=== PATIENT | male | born 1955 | race Caucasian/White ===

== ENCOUNTER 2018-03-06 10:21 | Inpatient (IN) | payer OTHER ==
[2018-03-06 10:45] VITALS: BMI 60.6
--- NOTE | 2018-03-06 12:44 | HP ---
COWS - Scale Resting Pulse: 1= [place] 81-100 Sweatin= Chills/Flushing Restless Observation: 1= Difficult to Sit Still Pupil Size: 0= Normal to Room Light Bone or Joint Aches: 2= Severe Diffuse Aches Runny Nose/ Eye Tearin= Nasal Congestion GI Upset > 30mins: 1= Stomach Cramp Tremor Observation: 2= Slight Tremor Visible Yawning Observation: 1= 1-2x During Session Anxiety or Irritability: 1=Feels Anxious/Irritable Goose Flesh Skin: 0=Smooth Skin COWS Score: 11 Admission ROS S - HPI Chief Complaint: I have to stop using, I'm tired of it, I want to stay away from it. Allergies/Adverse Reactions: Allergies Allergy/AdvReac Type Severity Reaction Status Date / Time No Known Drug Allergies Allergy Verified 09/17/17 13:51 History of Present Illness: 62 yo gentleman here for detox from opiates and alcohol, denies seizure, denies any overdose. [facility] - got out in November 2017. He uses street methadone and sometimes buys street suboxone. Poor adherence to medications. History of being on methadone program at [facility] but this was in 2011 - interested in going back on a program after detox. Patient in wheelchair - difficulty walking due to morbid obesity. Exam Limitations: Clinical Condition - Ebola screening Have you traveled outside of the country in the last 21 days: No (N) Have you had contact with anyone from an Ebola affected area: No Have you been sick,other than usual withdrawal symptoms: No Do you have a fever: No - Review of Systems Constitutional: Loss of Appetite, Changes in sleep EENT: reports: Blurred Vision Respiratory: reports: SOB with Exertion Cardiac: reports: No Symptoms Reported GI: reports: Poor Appetite : reports: Frequency, Incontinence Musculoskeletal: reports: Back Pain, Joint Pain, Muscle Pain Integumentary: reports: Rash (buttocks and posterior thighs - excoriated, erythematous) Neuro: reports: Headache Endocrine: reports: No Symptoms Reported Hematology: reports: No Symptoms Reported Psychiatric: reports: Mood/Affect Appropiate, Anxious Other Systems: Reviewed and Negative Patient History - Patient Medical History Hx Anemia: No Hx Asthma: Yes (on inhaler) Hx Chronic Obstructive Pulmonary Disease (COPD): No Hx Cancer: No Hx Cardiac Disorders: No Hx Congestive Heart Failure: No Hx Hypertension: Yes (poor adherence) Hx Hypercholesterolemia: Yes (on atorvastatin) Hx Pacemaker: No Hx Seizures: No Hx Dementia: No Hx Diabetes: Yes Hx Gastrointestinal Disorders: No Hx Liver Disease: No Hx Genitourinary Disorders: No Hx Sexually Transmitted Disorders: No Hx Renal Disease (ESRD): No Hx Thyroid Disease: No Hx Human Immunodeficiency Virus (HIV): No Hx Hepatitis C: No Hx Depression: Yes (not on meds) Hx Suicide Attempt: No (denies current suicidal ideation) Hx Bipolar Disorder: No Hx Schizophrenia: No Other Medical History: thromboycytopenia; sleep apnea - Patient Surgical History Past Surgical History: Yes Hx Neurologic Surgery: No Hx Cataract Extraction: No Hx Cardiac Surgery: No Hx Lung Surgery: No Hx Breast Surgery: No Hx Breast Biopsy: No Hx Abdominal Surgery: No Hx Appendectomy: No Hx Cholecystectomy: No Hx Section: Yes (Right Knee Surgery in the 80's) Hx Orthopedic Surgery: No Anesthesia Reaction: No - PPD History Previous Implant?: Yes Implanted On Prior [facility] Admission?: Yes Date: 09/14/17 Results: 0 mm PPD to be Administered?: No - Reproductive History Patient is a Female of Child Bearing Age (11 -55 yrs old): No (male) - Smoking Cessation Smoking history: Current every day smoker Have you smoked in the past 12 months: Yes Aproximately how many cigarettes per day: 2 If you are a former smoker, when did you quit?: smokes marijuana, no cigarrette Hx Chewing Tobacco Use: No Initiated information on smoking cessation: Yes 'Breaking Loose' booklet given: 03/06/18 (give on floor) - Substance & Tx. History Hx Alcohol Use: Yes Hx Substance Use: Yes Substance Use Type: Alcohol, Cocaine, Heroin, Marijuana, Opiates Hx Substance Use Treatment: Yes (detox, methadone, ) - Substances Abused Non-Rx Methadone Route: Oral Frequency: 1-2 times per week Amount used: 10mg Age of first use: 62 Date of Last Use: 02/27/18 Heroin Route: Inhalation Frequency: Daily Amount used: 8 Age of first use: 15 Date of Last Use: 03/06/18 cocaine Route: Smoking Frequency: 1-2 times per week Amount used: $100 Age of first use: 16 Date of Last Use: 03/05/18 pot Route: Smoking Frequency: Daily Amount used: 4 blunts Age of first use: 15 Date of Last Use: 03/06/18 alcohol Route: Oral Frequency: 3-6 times per week Amount used: 2 shots Age of first use: 16 Date of Last Use: 03/05/18 suboxone Route: Oral Frequency: 1-2 times per week Amount used: 8mg Age of first use: 62 [address]) Date of Last Use: 03/05/18 Family Disease History - Family Disease History Family Disease History: Diabetes: Brother (two - living - renal), Heart Disease : Father (, of Heart attack), Brother, Other: Mother ( of aneurysm), Brother, Sister (five - living , one uses drugs), Son (three - healthy), Daughter (one - healthy) Admission Physical Exam [facility] - Vital Signs Vital Signs: Vital Signs - 24 hr 03/06/18 10:42 Temperature 98.0 F Pulse Rate 87 Respiratory 18 Rate Blood Pressure 166/96 - Physical General Appearance: Yes: Nourished, Appropriately Dressed, Moderate Distress, Obese (morbid), Anxious HEENTM: Yes: EOMI, Hearing grossly Normal, Normocephalic, Normal Voice, Pharynx Normal Respiratory: Yes: Normal Breath Sounds, Other (dyspnea on exertion) Neck: Yes: No masses,lesions,Nodules Breast: Yes: Breast Exam Deferred Cardiology: Yes: Regular Rhythm, Regular Rate Abdominal: Yes: Flat, Soft, Protuberent Genitourinary: Yes: Frequency Back: Yes: Decreased Range of Motion Musculoskeletal: Yes: Back pain, Other (difficulty to walk - uses wheelchair) Extremities: Yes: Pedal Edema (mild edema both legs- some scratch moffett) Neurological: Yes: Alert, Normal Mood/Affect, Normal Response Integumentary: Yes: Normal Color, Dry, Warm, Other (erythematous, excoriated skin buttocks and posterior thighs) Lymphatic: Yes: Within Normal Limits - Diagnostic (1) Opioid dependence with uncomplicated intoxication Current Visit: Yes Status: Acute (2) Alcohol dependence with uncomplicated intoxication Current Visit: Yes Status: Chronic (3) Sleep apnea with use of continuous positive airway pressure (CPAP) Current Visit: Yes Status: Chronic (4) Cannabis dependence Current Visit: Yes Status: Acute (5) Back pain with right-sided sciatica Current Visit: Yes Status: Acute (6) Cocaine dependence Current Visit: No Status: Acute Qualifiers: Substance use status: uncomplicated Qualified Code(s): F14.20 - Cocaine dependence, uncomplicated (7) Asthma Current Visit: Yes Status: Chronic Qualifiers: Asthma severity: unspecified severity Asthma persistence: unspecified Asthma complication type: uncomplicated Qualified Code(s): J45.909 - Unspecified asthma, uncomplicated (8) BPH (benign prostatic hyperplasia) Current Visit: No Status: Chronic Qualifiers: Lower urinary tract symptom presence: unspecified whether lower urinary tract symptoms present Qualified Code(s): N40.0 - Benign prostatic hyperplasia without lower urinary tract symptoms (9) Diabetes mellitus type 2 in obese Current Visit: No Status: Chronic (10) HTN (hypertension) Current Visit: No Status: Chronic Qualifiers: Hypertension type: essential hypertension Qualified Code(s): I10 - Essential (primary) hypertension (11) Hypercholesteremia Current Visit: No Status: Chronic (12) Morbid obesity Current Visit: No Status: Chronic (13) Nicotine dependence Current Visit: No Status: Chronic Qualifiers: Nicotine product type: cigarettes Substance use status: uncomplicated Qualified Code(s): F17.210 - Nicotine dependence, cigarettes, uncomplicated (14) Mobility impaired Current Visit: Yes Status: Acute Cleared for Admission [facility] - Detox or Rehab [facility] Level of Care: Medically Managed Detox Regimen/Protocol: Methadone/Librium S Breath Alcohol Content Breath Alcohol Content: 0 Urine Drug Screen - Results Drug Screen Negative: No Urine Drug Screen Results: THC-Marijuana, MAYRA-Cocaine, OPI-Opiates, MTD- Methadone, OXY-Oxycodone
[2018-03-06] MEDS ORDERED: hydrOXYzine PAMOATE 25 MG CAPSULE (FP) PO PRN (13:29)
[2018-03-06] MEDS ORDERED: IBUPROFEN 400 MG TABLET (FP) PO PRN (13:29)
[2018-03-06] MEDS ORDERED: chlordiazePOXIDE HCL 25 MG CAPSULE PO ONE (13:29)
[2018-03-06] MEDS ORDERED: MENTHOL/PHENOL 1 EACH UD MM PRN (13:29)
[2018-03-06] MEDS ORDERED: ACETAMINOPHEN 325 MG TABLET (FP) PO PRN (13:29)
[2018-03-06] MEDS ORDERED: MAGNESIUM CITRATE 300 ML BOTTLE PO PRN (13:29)
[2018-03-06] MEDS ORDERED: chlordiazePOXIDE HCL 25 MG CAPSULE PO PRN (13:29)
[2018-03-06] MEDS ORDERED: MAG HYDROX/AL HYDROX/SIMETH 30 ML UNIT-DOSE CUP PO PRN (13:29)
[2018-03-06] MEDS ORDERED: LOPERAMIDE HCL 2 MG CAPSULE PO PRN (13:29)
[2018-03-06] MEDS ORDERED: P-EPHED 60MG/TRIPROLIDI 2.5MG TABLET PO PRN (13:29)
[2018-03-06] MEDS ORDERED: METHADONE HCL 10 MG TABLET (FOR DETOX USE ONLY) PO ONE ×2 (13:29→23:00)
[2018-03-06] MEDS ORDERED: guaiFENesin/D-METHORPHAN HB 10 ML UNIT-DOSE CUPS PO PRN (13:29)
[2018-03-06] MEDS ORDERED: MAGNESIUM HYDROX 2400MG/30ML ORAL SUSPENSION 30 ML CUP PO PRN (13:29)
[2018-03-06] MEDS ORDERED: ALBUTEROL SO4 8 GM HFA INHALER IH PRN (13:36)
[2018-03-06] MEDS ORDERED: METHADONE HCL 10 MG TABLET (FOR DETOX USE ONLY) ONE (17:33)
[2018-03-06] MEDS: LISINOPRIL 5 MG TABLET (FP) PO SCH (18:07)
[2018-03-06] MEDS: chlordiazePOXIDE HCL 25 MG CAPSULE PO SCH ×2 (18:07→23:08)
[2018-03-06] MEDS: METHYL SALICYLATE/MENTHOL OINT 30 GM TUBE TP SCH ×2 (18:07→23:04)
[2018-03-06] MEDS: ZINC OXIDE 20% TOPICAL OINTMENT 30 GM TUBE TP SCH ×2 (18:08→23:05)
[2018-03-06 20:01] LABS: URINE APPEARANCE TURBID; URINE BILIRUBIN NEGATIVE (<2.0 mg/dL); URINE COLOR YELLOW; URINE GLUCOSE (UA) NEGATIVE (NEGATIVE); URINE KETONE NEGATIVE (NEGATIVE); URINE LEUK ESTERASE NEGATIVE (NEGATIVE); URINE NITRITE NEGATIVE (NEGATIVE); URINE PROTEIN NEGATIVE (NEGATIVE); URINE UROBILINOGEN NEGATIVE mg/dL (0.2-1.0)
[2018-03-06] MEDS ORDERED: MELATONIN 5 MG TABLETS PO PRN (22:00)
[2018-03-06] MEDS: ATORVASTATIN CA 10 MG TABLET (FP) PO SCH (23:08)
[2018-03-06] MEDS: THIAMINE HCL 100 MG TABLET (FP) PO SCH (23:08)
[2018-03-07] MEDS: chlordiazePOXIDE HCL 25 MG CAPSULE PO SCH ×4 (06:17→22:55)
[2018-03-07] MEDS: metFORMIN HCL 500 MG TABLET (FP) PO SCH (06:17)
[2018-03-07] MEDS ORDERED: METHADONE HCL 10 MG TABLET (FOR DETOX USE ONLY) PO SCH (10:00)
[2018-03-07] MEDS: LISINOPRIL 5 MG TABLET (FP) PO SCH (10:48)
[2018-03-07] MEDS: PRENATAL VITAMINS W/ FOLIC ACID TABLET (FP) PO SCH (10:48)
[2018-03-07] MEDS: ZINC OXIDE 20% TOPICAL OINTMENT 30 GM TUBE TP SCH ×2 (10:48→22:55)
[2018-03-07] MEDS: TAMSULOSIN HCL 0.4 MG CAP.ER.24H (FP) PO SCH (10:48)
[2018-03-07] MEDS: METHYL SALICYLATE/MENTHOL OINT 30 GM TUBE TP SCH ×2 (10:48→22:55)
[2018-03-07 10:56] LABS: HEMATOCRIT 39.1 % (35.4-49); HEMOGLOBIN 12.4 GM/dL (11.7-16.9); MCH 25.9 pg (25.7-33.7); MCHC 31.8 g/dl (32.0-35.9); MEAN CELL VOLUME 81.6 fl (80-96); MEAN PLT VOLUME 8.9 fl (7.5-11.1); RBC 4.79 M/mm3 (4.00-5.60); RDW 15.2 % (11.9-15.9); WHITE BLOOD COUNT 6.4 K/mm3 (4.0-10.0)
[2018-03-07 10:58] LABS: ANION GAP 2 MMOL/L (8-16); BILIRUBIN,TOTAL 0.4 mg/dL (0.2-1.0); BLOOD UREA NITROGEN 13 mg/dL (7-18); CALCIUM 8.1 mg/dL (8.5-10.1); CHLORIDE 105 mmol/L (98-107); CO2 34 mmol/L (21-32); CREATININE 0.8 mg/dL (0.7-1.3); GLUCOSE,RANDOM 89 mg/dL (74-106); SGOT/AST 20 U/L (15-37); SGPT/ALT 19 U/L (12-78); SODIUM 141 mmol/L (136-145)
[2018-03-07 10:59] LABS: ALK PHOS 46 U/L (45-117)
--- NOTE | 2018-03-07 12:03 | PN ---
[facility] CIWA - CIWA Score Nausea/Vomitin-No Nausea/No Vomiting Muscle Tremors: 1-None Visible, but [place] Anxiety: 5 Agitation: 3 Paroxysmal Sweats: 3 Orientation: 0-Oriented Tacttile Disturbances: 0-None Auditory Disturbances: 0-None Visual Disturbances: 0-None Headache: 0-None Present CIWA-Ar Total Score: 12 [facility] COWS - Scale Resting Pulse: 0= [place] 80 or Below Sweatin= Beads of Sweat on Face Restless Observation: 0= Sits Still Pupil Size: 2= Moderately Dilated Bone or Joint Aches: 4=Acute Joint/Muscle Pain Runny Nose/ Eye Tearin= None GI Upset > 30mins: 0= None Tremor Observation of Outstretched Hands: 1= Tremor [place], Not Seen Yawning Observation: 1= 1-2x During Session Anxiety or Irritability: 2=Irritable/Anxious Goose Flesh Skin: 0=Smooth Skin COWS Score: 13 [facility] Progress Note (SOAP) Subjective: Vital Signs 03/07/18 03/07/18 06:09 10:48 Temperature 98.2 F 97.5 F L Pulse Rate 65 66 Respiratory 22 18 Rate Blood Pressure 143/70 145/74 Laboratory Tests 03/06/18 03/06/18 03/07/18 18:00 18:19 06:14 WBC RBC Hgb Hct MCV MCH MCHC RDW Sodium Potassium Chloride Carbon Dioxide Anion Gap BUN Creatinine Creat Clearance w eGFR POC Glucometer 134 90 Random Glucose Calcium Total Bilirubin AST ALT Alkaline Phosphatase Total Protein Albumin Urine Color Yellow Urine Appearance Turbid Urine pH 5.0 D Ur Specific [place] 1.029 Urine Protein Negative Urine Glucose (UA) Negative Urine Ketones Negative Urine Blood Negative Urine Nitrite Negative Urine Bilirubin Negative Urine Urobilinogen Negative Ur Leukocyte Esterase Negative 03/07/18 03/07/18 07:40 07:40 WBC 6.4 RBC 4.79 Hgb 12.4 Hct 39.1 MCV 81.6 MCH 25.9 MCHC 31.8 L RDW 15.2 D Sodium 141 Potassium 4.0 Chloride 105 Carbon Dioxide 34 H D Anion Gap 2 L BUN 13 Creatinine 0.8 Creat Clearance w eGFR > 60 POC Glucometer Random Glucose 89 Calcium 8.1 L Total Bilirubin 0.4 AST 20 ALT 19 Alkaline Phosphatase 46 Total Protein 7.0 Albumin 3.0 L Urine Color Urine Appearance Urine pH Ur Specific [place] Urine Protein Urine Glucose (UA) Urine Ketones Urine Blood Urine Nitrite Urine Bilirubin Urine Urobilinogen Ur Leukocyte Esterase Objective: 03/07/18 11:58 WITHDRAWAL SX Assessment: 03/07/18 11:59 WITHDRAWAL SX Plan: CONTINUE DETOX
--- NOTE | 2018-03-07 13:35 | CONSULT ---
[facility] Psychiatric Consult - Data Date of interview: 03/07/18 Admission source: Patient was referred to the unit by gillian at his half-way Identifying data: 62 y/o father of 4, homeless, retired, residing in a half-way Substance Abuse History: Admitted to the uniit for ETOH, cocaine, marijuana heroin and nicotine dependence. Refer to addicttion counselor note for more detailed drug hsitory Medical History: Asthma, ARIANNA HTN, Hyperlipidemia , DM, BPH. Left knee cartilage repair Psychiatric History: Patient 's examination was superficial, he is overweight, heavily snoring with apneas and pauses interfreing with the interviewing process. Sleeping in and out. he denies past psychiatric history. C/o insomnia
--- NOTE | 2018-03-07 13:49 | CONSULT ---
[facility] Psychiatric Consult - Data Date of interview: 03/07/18 Admission source: Refered to Detox by his [facility] staff Identifying data: 62 y/o male overweight father of 4 homeless, retired, living in [facility], unable to provide source of income Substance Abuse History: History of polysubstance use; ETOH, cocaine, marijauna heroin, nicotine dependence Medical History: Asthma , ARIANNA HTN, DM, Hyperlipidemia, morbid obesity. Histiry of keft knee cartilage repair Psychiatric History: Patient denies psychistric history. Examination was marginal, patient was seen bedside with episodic snoring with apneas and pauses. Unable to focus for a full exxamination. he denies depression psychosis denies suicidal or homicidal ideation. C/o insomnia Physical/Sexual Abuse/Trauma History: denies Mental Status Exam - Mental Status Exam Alert and Oriented to: Person Cognitive Function: Fair Patient Appearance: Unkempt Mood: Apprehensive Affect: Appropriate Patient Behavior: Sedated, Fatigued, Cooperative Speech Pattern: Slurred, Pressured Voice Loudness: Mildly Loud Thought Process: Circumstantial Thought Disorder: Not Present Hallucinations: Denies Suicidal Ideation: Denies Homicidal Ideation: Denies Insight/Judgement: Poor Sleep: Poorly Appetite: Fair Muscle strength/Tone: Normal Gait/Station: Normal Psychiatric Findings - Problem List ([place] 1, 2,3) (1) Cocaine dependence Current Visit: Yes Status: Acute Qualifiers: Substance use status: uncomplicated Qualified Code(s): F14.20 - Cocaine dependence, uncomplicated (2) Marijuana dependence Current Visit: Yes Status: Acute (3) Opioid dependence with uncomplicated intoxication Current Visit: Yes Status: Acute (4) Alcohol dependence with uncomplicated intoxication Current Visit: Yes Status: Chronic (5) Asthma Current Visit: Yes Status: Chronic Qualifiers: Asthma severity: unspecified severity Asthma persistence: unspecified Asthma complication type: unspecified Qualified Code(s): J45.909 - Unspecified asthma, uncomplicated (6) BPH (benign prostatic hyperplasia) Current Visit: Yes Status: Chronic Qualifiers: Lower urinary tract symptom presence: unspecified whether lower urinary tract symptoms present Qualified Code(s): N40.0 - Benign prostatic hyperplasia without lower urinary tract symptoms (7) HTN (hypertension) Current Visit: Yes Status: Chronic Qualifiers: Hypertension type: essential hypertension Qualified Code(s): I10 - Essential (primary) hypertension (8) Hypercholesteremia Current Visit: Yes Status: Chronic (9) Morbid obesity Current Visit: Yes Status: Chronic - Initial Treatment Plan Initial Treatment Plan: continue detox treatment. Monitor response
[2018-03-07] MEDS: THIAMINE HCL 100 MG TABLET (FP) PO SCH (22:55)
[2018-03-07] MEDS: ATORVASTATIN CA 10 MG TABLET (FP) PO SCH (22:55)
[2018-03-08] MEDS: chlordiazePOXIDE HCL 25 MG CAPSULE PO SCH ×2 (05:54→10:09)
[2018-03-08] MEDS: metFORMIN HCL 500 MG TABLET (FP) PO SCH (06:51)
[2018-03-08] MEDS ORDERED: METHADONE HCL 5 MG TABLET (FOR DETOX USE ONLY) PO SCH (10:00)
[2018-03-08] MEDS: TAMSULOSIN HCL 0.4 MG CAP.ER.24H (FP) PO SCH (10:08)
[2018-03-08] MEDS: PRENATAL VITAMINS W/ FOLIC ACID TABLET (FP) PO SCH (10:08)
[2018-03-08] MEDS: LISINOPRIL 5 MG TABLET (FP) PO SCH (10:08)
[2018-03-08] MEDS: METHYL SALICYLATE/MENTHOL OINT 30 GM TUBE TP SCH ×2 (10:09→22:56)
[2018-03-08] MEDS: ZINC OXIDE 20% TOPICAL OINTMENT 30 GM TUBE TP SCH ×2 (10:09→22:57)
--- NOTE | 2018-03-08 12:02 | PN ---
S CIWA - CIWA Score Nausea/Vomitin-No Nausea/No Vomiting Muscle Tremors: 4-Moderate,w/Arms Extend Anxiety: 5 Agitation: 4-Moderately Restless Paroxysmal Sweats: 1-Minimal Palms Moist Orientation: 0-Oriented Tacttile Disturbances: 0-None Auditory Disturbances: 0-None Visual Disturbances: 0-None Headache: 0-None Present CIWA-Ar Total Score: 14 [facility] COWS - Scale Resting Pulse: 0= [place] 80 or Below Sweatin= Chills/Flushing Restless Observation: 3= Extraneous Movement Pupil Size: 2= Moderately Dilated Bone or Joint Aches: 4=Acute Joint/Muscle Pain Runny Nose/ Eye Tearin= Nasal Congestion GI Upset > 30mins: 1= Stomach Cramp Tremor Observation of Outstretched Hands: 1= Tremor [place], Not Seen Yawning Observation: 0= None Anxiety or Irritability: 2=Irritable/Anxious Goose Flesh Skin: 0=Smooth Skin COWS Score: 15 S Progress Note (SOAP) Subjective: ANXIETY,IRRITABILITY, SWEATS. KNEES AND SHOULDER PAIN -DIFFIFULTY TURNING AROUND IN BED". OOB IN A WHEELCHAIR.PT STATES MOTRIN NOT EFFECTIVE Objective: 03/08/18 11:59 Vital Signs 03/08/18 03/08/18 06:17 09:13 Temperature 97.6 F 96.8 F L Pulse Rate 69 52 L Respiratory 22 18 Rate Blood Pressure 173/85 186/110 Laboratory Tests 03/06/18 03/06/18 03/07/18 18:00 18:19 06:14 WBC RBC Hgb Hct MCV MCH MCHC RDW Plt Count MPV Sodium Potassium Chloride Carbon Dioxide Anion Gap BUN Creatinine Creat Clearance w eGFR POC Glucometer 134 90 Random Glucose Calcium Total Bilirubin AST ALT Alkaline Phosphatase Total Protein Albumin Urine Color Yellow Urine Appearance Turbid Urine pH 5.0 D Ur Specific [place] 1.029 Urine Protein Negative Urine Glucose (UA) Negative Urine Ketones Negative Urine Blood Negative Urine Nitrite Negative Urine Bilirubin Negative Urine Urobilinogen Negative Ur Leukocyte Esterase Negative RPR Titer 03/07/18 03/07/18 03/07/18 07:40 07:40 07:40 WBC 6.4 RBC 4.79 Hgb 12.4 Hct 39.1 MCV 81.6 MCH 25.9 MCHC 31.8 L RDW 15.2 D Plt Count MPV 8.9 Sodium 141 Potassium 4.0 Chloride 105 Carbon Dioxide 34 H D Anion Gap 2 L BUN 13 Creatinine 0.8 Creat Clearance w eGFR > 60 POC Glucometer Random Glucose 89 Calcium 8.1 L Total Bilirubin 0.4 AST 20 ALT 19 Alkaline Phosphatase 46 Total Protein 7.0 Albumin 3.0 L Urine Color Urine Appearance Urine pH Ur Specific [place] Urine Protein Urine Glucose (UA) Urine Ketones Urine Blood Urine Nitrite Urine Bilirubin Urine Urobilinogen Ur Leukocyte Esterase RPR Titer Nonreactive 03/08/18 05:33 WBC RBC Hgb Hct MCV MCH MCHC RDW Plt Count MPV Sodium Potassium Chloride Carbon Dioxide Anion Gap BUN Creatinine Creat Clearance w eGFR POC Glucometer 103 Random Glucose Calcium Total Bilirubin AST ALT Alkaline Phosphatase Total Protein Albumin Urine Color Urine Appearance Urine pH Ur Specific [place] Urine Protein Urine Glucose (UA) Urine Ketones Urine Blood Urine Nitrite Urine Bilirubin Urine Urobilinogen Ur Leukocyte Esterase RPR Titer Assessment: 03/08/18 11:59 WITHDRAWAL SX Plan: CONTINUE DETOX FLEXERIL 10 MG PO TID NAPROSYN 500 MG PO BID, FIRST DOSE NOW D/C IBUPROFEN
[2018-03-08 13:03] VITALS: BP 127/79; PULSE 99; TEMP 97.7
--- NOTE | 2018-03-08 14:20 | EKG ---
Test Reason : Blood Pressure : / mmHG Vent. Rate : 065 BPM Atrial Rate : 065 BPM P-R Int : 164 ms QRS Dur : 094 ms QT Int : 438 ms P-R-T Axes : 042 065 084 degrees QTc Int : 455 ms POOR DATA QUALITY, INTERPRETATION MAY BE ADVERSELY AFFECTED NORMAL SINUS RHYTHM NONSPECIFIC ST ABNORMALITY ABNORMAL ECG WHEN COMPARED WITH ECG OF 12-SEP-2017 19:51, NO SIGNIFICANT CHANGE WAS FOUND Confirmed by DAWOOD BOOKER MD ([id number]) on 03/08/2018 2:20:13 PM Referred By: Confirmed By:DAWOOD BOOKER MD
--- NOTE | 2018-03-08 16:17 | PN ---
[facility] Progress Note Note: PT IS A 62 Y/O MALE ADMITTED TO DETOX ON 03/06/18 FOR HEROIN,SUBOXONE AND METHADONE DEPENDENCE. PT HAS A HX OF DM, HYPERCHOLESTEROLEMIA,BPH AND HTN. PT C /O CHEST PAIN WITH HEAVY FEELING IN MID CHEST AND NUMBNESS TO HIS LEFT ARM/ HAND. PT DENIES SOB EXCEPT OBSERVED SOB ON EXERTION. ALERT O X 3. CARDIAC: S1 S2, RRR LUNGS: CLEAR TO AUSCULTATE/P PULSE OX:92% - 93% ROOM AIR Vital Signs 03/08/18 03/08/18 09:13 13:03 Temperature 96.8 F L 97.7 F Pulse Rate 52 L 99 H Respiratory 18 18 Rate Blood Pressure 186/110 127/79 PLAN:TRANSFER PT TO [facility] ER VIA AMBULANCE FOR EVALUATION AND POSSIBLE TREATMENT. SPOKE TO DR COLVIN AT THE ER WHO AGREED TO TAKE THE PT. PT MAY RETURN TO [facility] TO COMPLETE DETOX ONCE MEDICALLY CLEARED.
[2018-03-08] MEDS: chlordiazePOXIDE 5 MG CAPSULE PO SCH ×2 (18:15→22:57)
[2018-03-08] MEDS: ATORVASTATIN CA 10 MG TABLET (FP) PO SCH (22:56)
[2018-03-08] MEDS: THIAMINE HCL 100 MG TABLET (FP) PO SCH (22:57)
[2018-03-09] MEDS ORDERED: chlordiazePOXIDE HCL 10 MG CAPSULE PO SCH (17:00)
== END 2018-03-08 23:14 | disposition short-term general hospital (02) | DRG 897 ==
LOC: YASAS 10:21 → Y3N 15:00
PROVIDERS: ATTEND Surgery
PROC: HZ2ZZZZ Detoxification Services for Substance Abuse Treatment (ICD-10-PCS; principal; 2018-03-06)
DX: F11.20 Opioid dependence, uncomplicated (principal); F14.20 Cocaine dependence, uncomplicated; Z68.44 Body mass index [BMI] 60.0-69.9, adult; F10.20 Alcohol dependence, uncomplicated; F12.20 Cannabis dependence, uncomplicated; F17.210 Nicotine dependence, cigarettes, uncomplicated; I10 Essential (primary) hypertension; J45.909 Unspecified asthma, uncomplicated; E78.00 Pure hypercholesterolemia, unspecified; N40.0 Benign prostatic hyperplasia without lower urinary tract symptoms; M54.41 Lumbago with sciatica, right side; M51.26 Other intervertebral disc displacement, lumbar region; G47.30 Sleep apnea, unspecified; E66.01 Morbid (severe) obesity due to excess calories; Z74.09 Other reduced mobility; E11.9 Type 2 diabetes mellitus without complications
CPT/HCPCS: 36415; 80053; 81003; 82962; 85027; 86593; 93005; 93010

== ENCOUNTER 2018-03-08 16:45 | Observation (INO) | payer OTHER ==
[2018-03-08] MEDS ORDERED: ASPIRIN 81 MG CHEWABLE TABLETS PO ONE (17:04)
[2018-03-08] MEDS ORDERED: ASPIRIN 81 MG CHEWABLE TABLETS ONE (17:16)
[2018-03-08 17:20] LABS: BASO % 1.2 % (0-2.0); EOS % 4.4 % (0-4.5); HEMATOCRIT 39.6 % (35.4-49); LYMPH % 23.8 % (8-40); MCH 26.5 pg (25.7-33.7); MCHC 32.9 g/dl (32.0-35.9); MEAN CELL VOLUME 80.6 fl (80-96); MEAN PLT VOLUME 8.7 fl (7.5-11.1); MONO % 6.6 % (3.8-10.2); PLATELET COUNT 138 K/MM3 (134-434); RBC 4.92 M/mm3 (4.00-5.60); RDW 15.4 % (11.9-15.9); WHITE BLOOD COUNT 6.4 K/mm3 (4.0-10.0)
[2018-03-08 17:31] LABS: INR 1.07 (0.83-1.09); PROTHROMBIN TIME (PATIENT) 12.1 SEC (9.7-13.0)
[2018-03-08 17:38] LABS: ANION GAP 8 MMOL/L (8-16); BILIRUBIN,TOTAL 0.2 mg/dL (0.2-1.0); BLOOD UREA NITROGEN 14 mg/dL (7-18); CALCIUM 8.5 mg/dL (8.5-10.1); CHLORIDE 106 mmol/L (98-107); CO2 30 mmol/L (21-32); CREATININE 0.8 mg/dL (0.7-1.3); GLUCOSE,RANDOM 114 mg/dL (74-106); SGPT/ALT 20 U/L (12-78); SODIUM 144 mmol/L (136-145); TOT PROT 7.2 g/dl (6.4-8.2)
[2018-03-08 17:40] LABS: ALK PHOS 44 U/L (45-117)
[2018-03-08 17:42] LABS: POTASSIUM 4.4 mmol/L (3.5-5.1); SGOT/AST 25 U/L (15-37)
--- NOTE | 2018-03-08 17:53 | PDOC ---
History of Present Illness - General Chief Complaint: Chest Pain Stated Complaint: CHEST PAIN Time Seen by Provider: 03/08/18 16:51 History Source: Patient Exam Limitations: No Limitations - History of Present Illness Initial Comments: 03/08/18 17:47 Patient is a 62M with history of alcohol abuse, opiate abuse, sleep apnea, HTN, Asthma, HLD, DM, PE, morbid obesity here today complaining of chest pain and several syncopal episodes today from [facility]. Patient states that he has "fallen out" several times this morning and came to with chest pain. He endorses associated parathesias to his left arm. The pain worsens with inspiration and movement of his arm. Denies fevers, chills, leg swelling, nausea , vomiting, recent travel. Patient was diagnosed with PE in 2014 at [facility], took anticoagulation for 8 months but never found out cause of his blood clot. Patient is wheelchair bound due to morbid obesity. Past History - Past Medical History Allergies/Adverse Reactions: Allergies Allergy/AdvReac Type Severity Reaction Status Date / Time No Known Drug Allergies Allergy Verified 09/17/17 13:51 Home Medications: Ambulatory Orders Acetaminophen [Tylenol] 650 mg PO ASDIR 03/08/18 Albuterol Sulfate Inhaler - [Ventolin Hfa Inhaler -] 1 - 2 inh PO QID 03/08/18 Atorvastatin Ca [Lipitor] 10 mg PO HS 03/08/18 Chlordiazepoxide [Librium -] 15 mg PO QID 03/08/18 Hydroxyzine HCl 25 mg PO QID 03/08/18 Ibuprofen [Motrin -] 400 mg PO QID 03/08/18 Lisinopril 5 mg PO DAILY 03/08/18 Loperamide HCl [Loperamide] 4 mg PO ASDIR 03/08/18 Mag Hydrox/Al Hydrox/Simeth [Mylanta *Suspension*] 30 ml PO ONCE 03/08/18 Magnesium Citrate [Citroma -] 150 ml PO BID 03/08/18 Magnesium Hydroxide [Milk of Magnesia] 30 ml PO DAILY 03/08/18 Melatonin 5 mg PO DAILY 03/08/18 Metformin HCl [Metformin HCl ER] 500 mg PO DAILY 03/08/18 Methadone [Dolophine -] 15 mg PO DAILY 03/08/18 Methyl Salicylate [Gordogesic] 75 gm TP BID 09/03/18 P-Ephed 60Mg/Triprolidi 2.5MG [Actifed -] 1 combo PO Q4H 03/08/18 Prenat 115/Iron Fum/Folic/Dss [ 19 Tablet] 1 each PO DAILY 03/08/18 Tamsulosin HCl [Flomax] 0.4 mg PO DAILY 03/08/18 Thiamine HCl [B-1] 100 mg PO HS 03/08/18 Anemia: No Asthma: Yes (on inhaler) Cancer: No Cardiac Disorders: No COPD: No CHF: No Dementia: No Diabetes: Yes GI Disorders: No Disorders: No HTN: Yes (poor adherence) Hypercholesterolemia: Yes (on atorvastatin) Kidney Stones: No Liver Disease: No Seizures: No Thyroid Disease: No - Surgical History Abdominal Surgery: No Appendectomy: No Cardiac Surgery: No Cholecystectomy: No Lung Surgery: No Neurologic Surgery: No Orthopedic Surgery: No - Reproductive History Testicular Surgery: No - Suicide/Smoking/Psychosocial Hx Smoking History: Current some day smoker Have you smoked in the past 12 months: Yes Number of Cigarettes Smoked Daily: 2 If you are a former smoker, when did you quit?: smokes marijuana, no cigarrette Information on smoking cessation initiated: No 'Breaking Loose' booklet given: 03/06/18 Hx Alcohol Use: Yes Drug/Substance Use Hx: Yes Substance Use Type: Alcohol, Cocaine, Heroin, Marijuana, Opiates Hx Substance Use Treatment: Yes (detox, methadone, ) Review of Systems - Review of Systems Comments:: 03/08/18 17:52 GENERAL/CONSTITUTIONAL: No fever or chills. No weakness. HEAD, EYES, EARS, NOSE AND THROAT: No change in vision. No sore throat. CARDIOVASCULAR: +chest pain +shortness of breath RESPIRATORY: No cough, wheezing, or hemoptysis. GASTROINTESTINAL: No nausea, vomiting, diarrhea or constipation. GENITOURINARY: No dysuria, frequency, or change in urination. MUSCULOSKELETAL: No joint or muscle swelling or pain. No neck or back pain. SKIN: No rash NEUROLOGIC: No headache, vertigo, loss of consciousness, or change in strength/ sensation. ENDOCRINE: No increased thirst. No abnormal weight change HEMATOLOGIC/LYMPHATIC: No anemia, easy bleeding, +history of blood clots. ALLERGIC/IMMUNOLOGIC: No hives or skin allergy. *Physical Exam - Vital Signs Last Vital Signs Temp Pulse Resp BP Pulse Ox 98.2 F 84 18 124/81 99 03/08/18 16:59 03/08/18 16:59 03/08/18 16:59 03/08/18 16:59 03/08/18 16:59 - Physical Exam Comments: 03/08/18 17:53 GENERAL: Awake, alert, and fully oriented, in no acute distress, morbidly obese , falling asleep during exam HEAD: No signs of trauma, normocephalic, atraumatic EYES: PERRLA, EOMI, sclera anicteric, conjunctiva clear ENT: Auricles normal inspection, hearing grossly normal, nares patent, oropharynx clear without exudates. Moist mucosa NECK: Normal ROM, supple, no lymphadenopathy, JVD, or masses LUNGS: No distress, speaks full sentences, clear to auscultation bilaterally HEART: Regular rate and rhythm, normal S1 and S2, no murmurs, rubs or gallops, peripheral pulses normal and equal bilaterally. Tender to palpation over chest wall. ABDOMEN: Soft, nontender, normoactive bowel sounds. No guarding, no rebound. No masses EXTREMITIES: Normal inspection, Normal range of motion, no edema. No clubbing or cyanosis. NEUROLOGICAL: Cranial nerves II through XII grossly intact. Normal speech, normal gait, no focal sensorimotor deficits SKIN: Warm, Dry, normal turgor, no rashes or lesions noted. Heart Score/ECG Review - History History: Slightly suspicious - Electrocardiogram EKG: Normal - Age Age: 45-65 - Risk Factors Risk Factors Heart Score: Yes Hx Hypercholesterolemia, Yes Hx Hypertension, Yes Hx Diabetes, Yes Smoking History, Yes Hx Obesity Based on the list above the patient has:: >/=3 risk factors or Hx atherosclerotic disease - Troponin Troponin: </= normal limit - Score Heart Score - Total: 3 ED Treatment Course - LABORATORY CBC & Chemistry Diagram: 03/08/18 17:00 03/08/18 17:00 - ADDITIONAL ORDERS Additional order review: Laboratory Results 03/08/18 03/08/18 17:00 17:00 PT with INR 12.10 INR 1.07 Sodium 144 Potassium 4.4 Chloride 106 Carbon Dioxide 30 Anion Gap 8 BUN 14 Creatinine 0.8 Creat Clearance w eGFR > 60 Random Glucose 114 H D Calcium 8.5 Magnesium 2.0 Total Bilirubin 0.2 AST 25 D ALT 20 Alkaline Phosphatase 44 L Creatine Kinase 159 Troponin I 0.02 Total Protein 7.2 Albumin 3.0 L 03/08/18 17:00 RBC 4.92 MCV 80.6 MCHC 32.9 RDW 15.4 MPV 8.7 Neutrophils % 64.0 Lymphocytes % 23.8 Monocytes % 6.6 Eosinophils % 4.4 Basophils % 1.2 - RADIOLOGY Radiology Studies Ordered: Category Date Time Status CHEST X-RAY PORTABLE* [RAD] Stat Radiology 03/08/18 17:04 Taken - Medications Given in the ED: ED Medications Discontinued Medications Generic Name Dose Route Start Last Admin Trade Name Freq PRN Reason Stop Dose Admin Aspirin 162 mg 03/08/18 17:04 03/08/18 17:19 Asa - PO 03/08/18 17:05 162 mg ONCE ONE Administration Medical Decision Making - Medical Decision Making 03/08/18 17:54 Patient is 62M with history of polysubstance abuse, HTN, asthma, HLD, DM, obesity, PE here today complaining of chest pain. Vital signs stable and normal. EKG shows normal sinus rhythm with rate of 80. No st elevations/depressions. No significant t wave abnormalities. Normal axis, normal intervals. DDx includes, but is not limited to: arrhythmia, acs, overmedication, sleep apnea. CBC normal. CMP reassuring. Troponin detectable at 0.02. Will [address] in tele obs due to risk factors. Signed out to Dr Joseph. *DC/Admit/Observation/Transfer Diagnosis at time of Disposition: Chest pain - Discharge Dispostion Condition at time of disposition: Stable Decision to Admit order: Yes - Referrals - Patient Instructions - Post Discharge Activity
--- NOTE | 2018-03-08 20:52 | PDOC ---
Attending Attestation - Resident Resident Name: Maximus Green - ED Attending Attestation I have performed the following: I have examined & evaluated the patient, The case was reviewed & discussed with the resident, I agree w/resident's findings & plan, Exceptions are as noted - HPI HPI: 03/08/18 20:51 morbidly obese 62 yo male BIBA from [facility] for chest pain - Physicial Exam PE: 03/08/18 20:52 morbidly obese 62 yo male with c/o of chest pain head ncat neck supple,no jvd lungs cta b/l cvs [id number] abd protuberant ext no pitting edema,no cellulitis neuro axox3,moving all extremities skin no vesicles,no rashes psych appropriate - Medical Decision Making 03/08/18 20:55 first troponin is negative afdmitted to telemetry for r/o CA
--- NOTE | 2018-03-08 20:53 | HP ---
Admitting History and Physical - Primary Care Physician PCP: Vivian Joseph - Admission Chief Complaint: chesta pain, syncope History of Present Illness: 62M with history of alcohol abuse, opiate abuse, sleep apnea, HTN, Asthma, HLD , DM, PE, morbid obesity here today complaining of chest pain and several syncopal episodes today from [facility]. Patient states that he has "fallen out" several times this morning and came to with chest pain. He endorses associated parathesias to his left arm. The pain worsens with inspiration and movement of his arm. Denies fevers, chills, leg swelling, nausea, vomiting, recent travel. Patient was diagnosed with PE in 2014 at [facility], took anticoagulation for 8 months but never found out cause of his blood clot. Patient is wheelchair bound due to morbid obesity. - Past Medical History Cardiovascular: Yes: HTN, Hyperlipdemia Pulmonary: Yes: Pulmonary Embolus Endocrine: Yes: Diabetes Mellitus - Smoking History Smoking history: Current some day smoker Have you smoked in the past 12 months: Yes Aproximately how many cigarettes per day: 2 If you are a former smoker, when did you quit?: smokes marijuana, no cigarrette - Alcohol/Substance Use Hx Alcohol Use: Yes Home Medications - Allergies Allergies/Adverse Reactions: Allergies Allergy/AdvReac Type Severity Reaction Status Date / Time No Known Drug Allergies Allergy Verified 09/17/17 13:51 - Home Medications Home Medications: Ambulatory Orders Acetaminophen [Tylenol] 650 mg PO ASDIR 03/08/18 Albuterol Sulfate Inhaler - [Ventolin HFA Inhaler -] 1 - 2 inh PO QID 03/08/18 Atorvastatin Ca [Lipitor] 10 mg PO HS 03/08/18 Chlordiazepoxide [Librium -] 15 mg PO QID 03/08/18 Hydroxyzine HCl 25 mg PO Q4H 03/08/18 Ibuprofen [Motrin -] 400 mg PO Q6H 03/08/18 Lisinopril 5 mg PO DAILY 03/08/18 Loperamide HCl [Loperamide] 4 mg PO ASDIR 03/08/18 Mag Hydrox/Al Hydrox/Simeth [Mylanta Oral Suspension -] 30 ml PO ONCE 03/08/18 Magnesium Citrate [Citroma -] 150 ml PO BID 03/08/18 Magnesium Hydroxide [Milk of Magnesia] 30 ml PO DAILY 03/08/18 Melatonin 5 mg PO DAILY 03/08/18 Metformin HCl [Metformin HCl ER] 500 mg PO DAILY 03/08/18 Methadone [Dolophine -] 15 mg PO DAILY 03/08/18 Methyl Salicylate [Gordogesic] 75 gm TP BID 03/08/18 P-Ephed 60Mg/Triprolidi 2.5MG [Actifed -] 1 combo PO Q4H 03/08/18 Prenat 115/Iron Fum/Folic/Dss [ 19 Tablet] 1 each PO DAILY 03/08/18 Tamsulosin HCl [Flomax] 0.4 mg PO DAILY 03/08/18 Thiamine HCl [B-1] 100 mg PO HS 03/08/18 Zinc Oxide 1 applic TP BID 03/08/18 Family Disease History - Family Disease History Family Disease History: Diabetes: Brother (two - living - renal), Heart Disease : Father (, of Heart attack), Brother, Other: Mother ( of aneurysm), Brother, Sister (five - living , one uses drugs), Son (three - healthy), Daughter (one - healthy) Physical Examination Vital Signs: Vital Signs Temperature 98.2 F 03/08/18 16:59 Pulse Rate 84 03/08/18 16:59 Respiratory Rate 18 03/08/18 16:59 Blood Pressure 124/81 03/08/18 16:59 O2 Sat by Pulse Oximetry (%) 99 03/08/18 16:59 Constitutional: Yes: No Distress HENT: Yes: Atraumatic Neck: Yes: Supple Cardiovascular: Yes: Regular Rate and Rhythm Respiratory: Yes: CTA Bilaterally Gastrointestinal: Yes: Normal Bowel Sounds Extremities: Yes: WNL Neurological: Yes: Alert, Oriented Labs: CBC, BMP 03/08/18 17:00 03/08/18 17:00 Problem List - Problems (1) Chest pain Assessment/Plan: tele monitoring fu cardiac enzymes cardiology consult Code(s): R07.9 - CHEST PAIN, UNSPECIFIED (2) Alcohol dependence Assessment/Plan: pt is from [facility] home meds Code(s): F10.20 - ALCOHOL DEPENDENCE, UNCOMPLICATED (3) Cannabis dependence Code(s): F12.20 - CANNABIS DEPENDENCE, UNCOMPLICATED (4) Cocaine dependence Code(s): F14.20 - COCAINE DEPENDENCE, UNCOMPLICATED Qualifiers: Substance use status: uncomplicated Qualified Code(s): F14.20 - Cocaine dependence, uncomplicated Assessment/Plan Laboratory Tests 03/08/18 03/08/18 03/08/18 17:00 17:00 17:00 WBC 6.4 RBC 4.92 Hgb 13.0 Hct 39.6 MCV 80.6 MCH 26.5 MCHC 32.9 RDW 15.4 Plt Count 138 MPV 8.7 Absolute Neuts (auto) 4.1 Neutrophils % 64.0 Lymphocytes % 23.8 Monocytes % 6.6 Eosinophils % 4.4 Basophils % 1.2 Nucleated RBC % 0 PT with INR 12.10 INR 1.07 Sodium 144 Potassium 4.4 Chloride 106 Carbon Dioxide 30 Anion Gap 8 BUN 14 Creatinine 0.8 Creat Clearance w eGFR > 60 Random Glucose 114 H D Calcium 8.5 Magnesium 2.0 Total Bilirubin 0.2 AST 25 D ALT 20 Alkaline Phosphatase 44 L Creatine Kinase 159 Creatine Kinase Index 1.0 CK-MB (CK-2) 1.60 Troponin I 0.02 Total Protein 7.2 Albumin 3.0 L Active Medications Generic Name Dose Route Start Last Admin Trade Name Freq PRN Reason Stop Dose Admin Atorvastatin Calcium 10 mg 03/08/18 22:00 03/08/18 21:57 Lipitor - PO 10 mg HS CECILE Administration Carvedilol 12.5 mg 03/09/18 11:15 03/09/18 11:43 Coreg - PO 12.5 mg BID CECILE Administration Ibuprofen 400 mg 03/08/18 23:28 03/09/18 10:04 Motrin - PO 400 mg Q6H PRN Administration PAIN 4-6 Lisinopril 20 mg 03/10/18 10:00 Prinivil PO DAILY CECILE Metformin HCl 500 mg 03/09/18 07:00 03/09/18 06:22 Glucophage Xr - PO 500 mg 0700 CECILE Administration Methadone HCl 15 mg 03/09/18 10:00 03/09/18 10:03 Dolophine - PO 15 mg DAILY CECILE Administration Tamsulosin HCl 0.4 mg 03/09/18 08:30 03/09/18 10:03 Flomax - PO 0.4 mg 0830 CECILE Administration Thiamine HCl 100 mg 03/08/18 22:00 03/08/18 21:57 Vitamin B1 - PO 100 mg HS CECILE Administration
[2018-03-08] MEDS: THIAMINE HCL 100 MG TABLET (FP) PO SCH (21:57)
[2018-03-08] MEDS: ATORVASTATIN CA 10 MG TABLET (FP) PO SCH (21:57)
[2018-03-08] MEDS ORDERED: chlordiazePOXIDE 5 MG CAPSULE PO SCH (22:00)
[2018-03-08 23:15] VITALS: BMI 67.1
[2018-03-09] MEDS: IBUPROFEN 400 MG TABLET (FP) PO PRN ×2 (04:03→10:04)
[2018-03-09] MEDS ORDERED: TAMSULOSIN HCL 0.4 MG CAP.ER.24H (FP) PO SCH (08:30)
[2018-03-09] MEDS ORDERED: METHADONE HCL 10 MG TABLET PO SCH (10:00)
[2018-03-09] MEDS ORDERED: LISINOPRIL 5 MG TABLET (FP) PO SCH (10:00)
--- NOTE | 2018-03-09 10:26 | PN ---
Progress Note (short form) - Note Progress Note: Chief Complaint: Events noted, notes reviewed, persistent left shoulder discomfort, reported chest pain earlier History of Present Illness: Seen and examined on telemetry. Full consult dictated - Current Medication List Current Medications Atorvastatin Calcium (Lipitor -) 10 mg PO [facility] Last Admin: 03/08/18 21:57 Dose: 10 mg Ibuprofen (Motrin -) 400 mg PO Q6H PRN PRN Reason: PAIN 4-6 Last Admin: 03/09/18 10:04 Dose: 400 mg Lisinopril (Prinivil) 5 mg PO DAILY [facility] Last Admin: 03/09/18 10:04 Dose: 5 mg Metformin HCl (Glucophage Xr -) 500 mg PO 0700 [facility] Last Admin: 03/09/18 06:22 Dose: 500 mg Methadone HCl (Dolophine -) 15 mg PO DAILY [facility] Last Admin: 03/09/18 10:03 Dose: 15 mg Tamsulosin HCl (Flomax -) 0.4 mg PO 0830 [facility] Last Admin: 03/09/18 10:03 Dose: 0.4 mg Thiamine HCl (Vitamin B1 -) 100 mg PO [facility] Last Admin: 03/08/18 21:57 Dose: 100 mg Review of Systems - Review of Systems Constitutional: denies: Chills or Fever Cardiovascular: As noted above Respiratory: denies: Cough or Sputum Production Gastrointestinal: denies: Nausea, Vomiting, Diarrhea, Constipation or Abdominal Pain Musculoskeletal: As noted above Neurological: denies: Dizziness or Headache - Objective Vital Signs: Last Vital Signs Temp Pulse Resp BP Pulse Ox 98.2 F 65 20 172/96 97 03/09/18 02:00 03/09/18 04:04 03/09/18 04:04 03/09/18 04:04 03/08/18 20:50 Intake & Output 03/06/18 03/07/18 03/08/18 03/09/18 23:59 23:59 23:59 23:59 Intake Total 650 320 Output Total 520 600 Balance 130 -280 Weight 481 lb 9.6 oz Neck: Supple Negative JVD No bruit Cardiovascular: S1 S2 regular rate and rhythm Respiratory: diminished breath sounds at the bases Gastrointestinal: Soft Benign Normal Bowel Sounds Ext: Negative Edema Labs: Troponin, BNP 03/08/18 03/08/18 03/09/18 17:00 21:20 05:30 Troponin I 0.02 0.02 0.02 CBC, BMP 03/08/18 17:00 03/08/18 17:00 Hepatic Panel Total Bilirubin 0.2 mg/dL (0.2-1.0) 03/08/18 17:00 AST 25 U/L (15-37) D 03/08/18 17:00 ALT 20 U/L (12-78) 03/08/18 17:00 Alkaline Phosphatase 44 U/L (45-117) L 03/08/18 17:00 Albumin 3.0 g/dl (3.4-5.0) L 03/08/18 17:00 INR, PTT INR 1.07 (0.83-1.09) 03/08/18 17:00 Assessment/Plan ASSESSMENT: 1. Chest pain syndrome atypical for CAD angina pectoris, consistent with musculoskeletal discomfort 2. HTN 3. DM 4. Hyperlipidemia 5. Questionable fall vs syncope, the later unlikely 6. History of pulmonary thromboembolism 7. History of ARIANNA 8. History of alcohol abuse 9. History of opiate abuse 10. Morbid obesity PLAN: 1. Add Coreg 2. Continue Lisinopril and titrate dosage as needed and as tolerated 3. Continue Lipitor 4. Add ASA 5. Echocardiography to evaluate LV size and function 6. No additional cardiovascular evaluation is indicated at this point or can be performed at our facility (weight limit for MPI study table is 350 lbs) Onur Craft MD
--- NOTE | 2018-03-09 11:31 | CONS ---
DATE OF CONSULTATION: DATE OF DICTATION: 03/09/2018 REQUESTED BY: Dr. Joseph CHIEF COMPLAINT: Chest pain syndrome, cardiovascular evaluation. HISTORY OF PRESENT ILLNESS: A 62-year-old morbidly obese male with known history of hypertensive cardiovascular disease, diabetes mellitus, hypercholesterolemia by history of pulmonary thromboembolism, obstructive sleep apnea, alcohol abuse, opioid abuse who was transferred from [facility] to [facility] emergency room for evaluation of chest discomfort, shoulder discomfort, and questionable syncopal episode. Patient reported sharp retrosternal chest discomfort with radiation to the left shoulder and associated left upper extremity paresthesia. Symptoms were noted at rest and with activity. Symptoms currently persist although he had reported resolution of the above-noted chest discomfort. Symptoms are exacerbated by certain shoulder movements. Patient reports dyspnea with minimal physical exertion. Patient denies any orthopnea, paroxysmal nocturnal dyspnea or peripheral edema. The patient denies any palpitations. Questionable fall versus loss of consciousness was reported. Patient does not recall the event. Patient reports fatigue and tiredness. PAST MEDICAL HISTORY: Hypertensive cardiovascular disease, diabetes mellitus, hypercholesterolemia, history of pulmonary thromboembolism, obstructive sleep apnea, alcohol abuse, opiate abuse. SOCIAL HISTORY: Alcohol and opiate abuse. FAMILY HISTORY: Positive coronary artery disease. ALLERGIES: None reported. MEDICAL THERAPY: Currently includes Lipitor 10 mg once a day, Motrin 400 mg every 6 hours as needed, lisinopril 5 mg once a day, metformin 500 mg once a day, methadone 15 mg once a day, Flomax 0.4 mg once a day, thiamine 100 mg once daily. REVIEW OF SYSTEMS: Head and Neck: Denies headache, photophobia, blurring of vision. Respiratory: No cough or sputum production. Cardiovascular: As noted above. Gastrointestinal: Denies nausea, vomiting, diarrhea, abdominal discomfort. Genitourinary: No symptoms reported. Musculoskeletal: As noted above. PHYSICAL EXAMINATION: Vital Signs: Blood pressure 172/96 mmHg, pulse rate is 65 beats per minute. Head and Neck: Pupils equal and reactive to light and accommodation. Extraocular muscles are intact. Anicteric sclerae. Negative JVD. No bruit appreciated. Chest: Diminished breath sounds at the bases bilaterally. Cardiovascular: S1, S2, regular, distant. No murmurs appreciated. Abdomen: Protuberant, soft, benign. Normoactive bowel sounds. Extremities: Negative edema. Intact distal pulses. No calf tenderness. ELECTROCARDIOGRAM: Reveals sinus rhythm with sinus arrhythmia with no acute ST segment or T wave abnormality. Troponin is 0.02. CBC revealed a white cell count of 6.4, hemoglobin 13.0, platelet count 138. Basic metabolic profile reveals sodium 144, potassium 4.4, BUN of 14, creatinine 0.8, glucose 114 with normal liver profile. ASSESSMENT: 1. Chest pain syndrome, atypical for coronary artery disease, consistent with musculoskeletal discomfort. 2. Hypertensive cardiovascular disease. 3. Diabetes mellitus. 4. Hypercholesterolemia. 5. Questionable fall versus syncope the latter unlikely. 6. History of pulmonary thromboembolism. 7. History of obstructive sleep apnea. 8. History of alcohol abuse. 9. History of opiate abuse. 10. Morbid obesity. RECOMMENDATION: 1. Addition of Coreg. 2. Continuation of lisinopril and titration of dosage as needed and as tolerated. 3. Continuation of Lipitor. 4. Addition of aspirin. 5. Echocardiography for evaluation of ventricular size and function. 6. No additional cardiovascular evaluation is indicated at this point. All can be performed at our facility. Weight limit for myocardial perfusion imaging table is 350 pounds. Patient currently weighs 481 pounds. 7. Patient was strongly counseled on opiate abuse cessation and alcohol abuse cessation. Thank you for the kind referral. JUDD MCALLISTER M.D. CEDRICK/[id number]
[2018-03-09] MEDS: CARVEDILOL 12.5 MG TABLET (FP) PO SCH ×2 (11:43→21:16)
--- NOTE | 2018-03-09 16:29 | EKG ---
Test Reason : Blood Pressure : / mmHG Vent. Rate : 080 BPM Atrial Rate : 080 BPM P-R Int : 182 ms QRS Dur : 094 ms QT Int : 414 ms P-R-T Axes : 034 050 072 degrees QTc Int : 477 ms SINUS RHYTHM WITH PREMATURE SUPRAVENTRICULAR COMPLEXES OTHERWISE NORMAL ECG WHEN COMPARED WITH ECG OF 06-MAR-2018 17:07, PREMATURE SUPRAVENTRICULAR COMPLEXES ARE NOW PRESENT Confirmed by Bijan Pemberton ([id number]) on 03/09/2018 4:28:53 PM Referred By: Confirmed By:Bijan Pemberton
--- NOTE | 2018-03-09 17:00 | ECHO ---
Name: HOMERO BACA Exam:Adult Echocardiogram Study Date: 03/09/2018 02:46 PM Age: 62 yrs Reason For Study: CHEST PAIN EVALUATE LVF Height: 71 in Weight: 481 lb BSA: 3.1 m2 MMode/2D Measurements & Calculations IVSd: 0.91 cm EDV(Teich): 137.4 ml LVIDd: 5.3 cm ESV(Teich): 66.2 ml LVIDs: 3.9 cm LVPWd: 0.91 cm Doppler Measurements & Calculations MV E max inez: 46.6 cm/sec MV A max inez: 56.3 cm/sec MV E/A: 0.83 Right Ventricle The right ventricle is not well visualized. Mitral Valve The mitral valve is grossly normal. Tricuspid Valve The tricuspid valve is not well visualized. Aortic Valve The aortic valve is not well visualized. Pulmonic Valve The prosthetic pulmonic valve is not well visualized. Interpretation Summary Cardiac structures were not adequately seen on this study. Limited views of the LV showed no wall mot ion abnormality. The EF cannot be estimated due to techical limitations. Bijan Pemberton 03/09/2018 03:58 PM
--- NOTE | 2018-03-09 20:09 | DS ---
Physical Examination Vital Signs: Vital Signs Temperature 98.8 F 03/09/18 17:00 Pulse Rate 87 03/09/18 17:00 Respiratory Rate 18 03/09/18 17:00 Blood Pressure 148/85 03/09/18 17:00 O2 Sat by Pulse Oximetry (%) 96 03/09/18 09:00 Constitutional: Yes: No Distress HENT: Yes: Atraumatic Neck: Yes: Supple Cardiovascular: Yes: Regular Rate and Rhythm Respiratory: Yes: CTA Bilaterally Gastrointestinal: Yes: Normal Bowel Sounds Extremities: Yes: WNL Edema: Yes Edema: LLE: Trace, RLE: Trace Neurological: Yes: Alert, Oriented ...Motor Strength: WNL Labs: CBC, BMP 03/08/18 17:00 03/08/18 17:00 Discharge Summary Reason For Visit: CHEST PAIN Current Active Problems Chest pain (Acute) Condition: Stable - Instructions Diet, Activity, Other Instructions: fu neuro as out patient Referrals: Jose Harrison MD [Staff Physician] - - Home Medications Comprehensive Discharge Medication List: Ambulatory Orders Acetaminophen [Tylenol] 650 mg PO ASDIR 03/08/18 Albuterol Sulfate Inhaler - [Ventolin HFA Inhaler -] 1 - 2 inh PO QID 03/08/18 Atorvastatin Ca [Lipitor] 10 mg PO HS 03/08/18 Chlordiazepoxide [Librium -] 15 mg PO QID 03/08/18 Hydroxyzine HCl 25 mg PO Q4H 03/08/18 Ibuprofen [Motrin -] 400 mg PO Q6H 03/08/18 Lisinopril 5 mg PO DAILY 03/08/18 Loperamide HCl [Loperamide] 4 mg PO ASDIR 03/08/18 Mag Hydrox/Al Hydrox/Simeth [Mylanta Oral Suspension -] 30 ml PO ONCE 03/08/18 Magnesium Citrate [Citroma -] 150 ml PO BID 03/08/18 Magnesium Hydroxide [Milk of Magnesia] 30 ml PO DAILY 03/08/18 Melatonin 5 mg PO DAILY 03/08/18 Metformin HCl [Metformin HCl ER] 500 mg PO DAILY 03/08/18 Methadone [Dolophine -] 15 mg PO DAILY 03/08/18 Methyl Salicylate [Gordogesic] 75 gm TP BID 03/08/18 P-Ephed 60Mg/Triprolidi 2.5MG [Actifed -] 1 combo PO Q4H 03/08/18 Prenat 115/Iron Fum/Folic/Dss [ 19 Tablet] 1 each PO DAILY 03/08/18 Tamsulosin HCl [Flomax] 0.4 mg PO DAILY 03/08/18 Thiamine HCl [B-1] 100 mg PO HS 03/08/18 Zinc Oxide 1 applic TP BID 03/08/[address] [facility] see neurology as out patient ema garcia at [facility] for further work up for neurological complaints
--- NOTE | 2018-03-09 20:29 | PN ---
Progress Note, Physician - Current Medication List Current Medications: Active Medications Atorvastatin Calcium (Lipitor -) 10 mg PO HS [facility] Last Admin: 03/08/18 21:57 Dose: 10 mg Carvedilol (Coreg -) 12.5 mg PO BID [facility] Last Admin: 03/09/18 11:43 Dose: 12.5 mg Ibuprofen (Motrin -) 400 mg PO Q6H PRN PRN Reason: PAIN 4-6 Last Admin: 03/09/18 10:04 Dose: 400 mg Lisinopril (Prinivil) 20 mg PO DAILY [facility] Metformin HCl (Glucophage Xr -) 500 mg PO 0700 [facility] Last Admin: 03/09/18 06:22 Dose: 500 mg Methadone HCl (Dolophine -) 15 mg PO DAILY [facility] Last Admin: 03/09/18 10:03 Dose: 15 mg Tamsulosin HCl (Flomax -) 0.4 mg PO 0830 [facility] Last Admin: 03/09/18 10:03 Dose: 0.4 mg Thiamine HCl (Vitamin B1 -) 100 mg PO [facility] Last Admin: 03/08/18 21:57 Dose: 100 mg - Objective Vital Signs: Vital Signs Temperature 98.8 F 03/09/18 17:00 Pulse Rate 87 03/09/18 17:00 Respiratory Rate 18 03/09/18 17:00 Blood Pressure 148/85 03/09/18 17:00 O2 Sat by Pulse Oximetry (%) 96 03/09/18 09:00 Labs: CBC, BMP 03/08/18 17:00 03/08/18 17:00 INR, PTT INR 1.07 (0.83-1.09) 03/08/18 17:00 Problem List - Problems (1) Chest pain Code(s): R07.9 - CHEST PAIN, UNSPECIFIED (2) Alcohol dependence Code(s): F10.20 - ALCOHOL DEPENDENCE, UNCOMPLICATED (3) Cannabis dependence Code(s): F12.20 - CANNABIS DEPENDENCE, UNCOMPLICATED (4) Cocaine dependence Code(s): F14.20 - COCAINE DEPENDENCE, UNCOMPLICATED Qualifiers: Substance use status: uncomplicated Qualified Code(s): F14.20 - Cocaine dependence, uncomplicated
[2018-03-09 20:58] VITALS: BP 151/92; PULSE 95; TEMP 98.2
[2018-03-09] MEDS: ATORVASTATIN CA 10 MG TABLET (FP) PO SCH (21:16)
[2018-03-09] MEDS: THIAMINE HCL 100 MG TABLET (FP) PO SCH (21:16)
[2018-03-10] MEDS ORDERED: LISINOPRIL 20 MG TABLET (FP) PO SCH (10:00)
== END 2018-03-09 22:00 | disposition other institution (70) ==
LOC: JER 16:45 → JERBED 18:00 → J4W 20:26
PROVIDERS: ADMIT Internal Medicine; ATTEND Internal Medicine
DX: R07.89 Other chest pain (principal); F10.20 Alcohol dependence, uncomplicated; F14.20 Cocaine dependence, uncomplicated; F12.20 Cannabis dependence, uncomplicated; F17.210 Nicotine dependence, cigarettes, uncomplicated; I11.0 Hypertensive heart disease with heart failure; E78.5 Hyperlipidemia, unspecified; G47.33 Obstructive sleep apnea (adult) (pediatric); J45.909 Unspecified asthma, uncomplicated; E11.9 Type 2 diabetes mellitus without complications; E66.01 Morbid (severe) obesity due to excess calories; Z68.44 Body mass index [BMI] 60.0-69.9, adult; Z86.711 Personal history of pulmonary embolism; Z79.84 Long term (current) use of oral hypoglycemic drugs; Z91.14 Patient's other noncompliance with medication regimen
CPT/HCPCS: 36415; 71045-TC-FY; 80053; 82550; 82553; 82962; 83735; 84484; 85025; 85610; 93005; 93010; 93306-TC; 99285-25; G0378

== ENCOUNTER 2018-03-09 23:21 | Inpatient (IN) | payer OTHER ==
[~2018-03-09 23:21] MED LIST: MELATONIN 5 MG TABLETS PO PRN
[2018-03-09] MEDS ORDERED: IBUPROFEN 400 MG TABLET (FP) PO PRN (23:53)
[2018-03-09] MEDS ORDERED: LOPERAMIDE HCL 2 MG CAPSULE PO PRN (23:53)
[2018-03-09] MEDS ORDERED: MENTHOL/PHENOL 1 EACH UD MM PRN (23:53)
[2018-03-09] MEDS ORDERED: guaiFENesin/D-METHORPHAN HB 10 ML UNIT-DOSE CUPS PO PRN (23:53)
[2018-03-09] MEDS ORDERED: MAGNESIUM HYDROX 2400MG/30ML ORAL SUSPENSION 30 ML CUP PO PRN (23:53)
[2018-03-09] MEDS ORDERED: P-EPHED 60MG/TRIPROLIDI 2.5MG TABLET PO PRN (23:53)
[2018-03-09] MEDS ORDERED: MAG HYDROX/AL HYDROX/SIMETH 30 ML UNIT-DOSE CUP PO PRN (23:53)
[2018-03-09] MEDS ORDERED: ACETAMINOPHEN 325 MG TABLET (FP) PO PRN (23:53)
[2018-03-09] MEDS ORDERED: MAGNESIUM CITRATE 300 ML BOTTLE PO PRN (23:53)
--- NOTE | 2018-03-10 00:10 | HP ---
Admission [facility] Chief Complaint: TRANSFERRED FROM [facility] TO COMPLETED DETOX Allergies/Adverse Reactions: Allergies Allergy/AdvReac Type Severity Reaction Status Date / Time No Known Drug Allergies Allergy Verified 03/10/18 06:11 History of Present Illness: ADMITTED ON 03/06/2018- 03/08/2018 TRANSFERRED TO [facility] FOR C/O C.P ON 03/08/2018 . CLIENT WAS OBSERVED IN TELE X 24 HOURS AND DEEMED MEDICALLY CLEARED AND TRANSFERRED BACK TODAY TO COMPLETE DETOX. CLIENT WAS MEDICATED WITH 15 MG OF METHADONE TODAY. LIBRIUM TAPER WAS STOPPED BUT UNCLEAR TO WHY. WILL READMIT CLIENT WAS DC DUE TO OVERNIGHT TELE STAY AT [facility] AND RESTART LIBRIUM TAPER WHERE CLIENT STOPPED AND CONT METHADONE TAPER FROM LAST DOSE RECIEVED AT [facility]. CLIENT IS A/O X3 NAD NO C/O VERBALIZED EXCEPT THAT HE WANTE TO RESTART HIS LIBRUIM TAPER. PLEASE SEE BELOW FOR HX/PE COMPLETED ON 03/06/2018 FOR CONTINUATION OF CARE Patient Name: HOMERO BACA Date of : 1955 Patient Status: Inpatient Attending Provider: Evelin Carlisle Date: 03/06/18 12:39 Initialization Date: 03/06/18 12:39 COWS - Scale Resting Pulse: 1= [place] 81-100 Sweatin= Chills/Flushing Restless Observation: 1= Difficult to Sit Still Pupil Size: 0= Normal to Room Light Bone or Joint Aches: 2= Severe Diffuse Aches Runny Nose/ Eye Tearin= Nasal Congestion GI Upset > 30mins: 1= Stomach Cramp Tremor Observation: 2= Slight Tremor Visible Yawning Observation: 1= 1-2x During Session Anxiety or Irritability: 1=Feels Anxious/Irritable Goose Flesh Skin: 0=Smooth Skin COWS Score: 11 Admission [facility] Chief Complaint: I have to stop using, I'm tired of it, I want to stay away from it. Allergies/Adverse Reactions: Allergies Allergy/AdvReac Type Severity Reaction Status Date / Time No Known Drug Allergies Allergy Verified 09/17/17 13:51 History of Present Illness: 62 yo gentleman here for detox from opiates and alcohol, denies seizure, denies any overdose. States he was in [facility] for five years - got out in November 2017. He uses street methadone and sometimes buys street suboxone. Poor adherence to medications. History of being on methadone program at [facility] but this was in 2011 - interested in going back on a program after detox. Patient in wheelchair - difficulty walking due to morbid obesity. Exam Limitations: Clinical Condition - Ebola screening Have you traveled outside of the country in the last 21 days: No (N) Have you had contact with anyone from an Ebola affected area: No Have you been sick,other than usual withdrawal symptoms: No Do you have a fever: No - Review of Systems Constitutional: Loss of Appetite, Changes in sleep EENT: reports: Blurred Vision Respiratory: reports: SOB with Exertion Cardiac: reports: No Symptoms Reported GI: reports: Poor Appetite : reports: Frequency, Incontinence Musculoskeletal: reports: Back Pain, Joint Pain, Muscle Pain Integumentary: reports: Rash (buttocks and posterior thighs - excoriated, erythematous) Neuro: reports: Headache Endocrine: reports: No Symptoms Reported Hematology: reports: No Symptoms Reported Psychiatric: reports: Mood/Affect Appropiate, Anxious Other Systems: Reviewed and Negative Patient History - Patient Medical History Hx Anemia: No Hx Asthma: Yes (on inhaler) Hx Chronic Obstructive Pulmonary Disease (COPD): No Hx Cancer: No Hx Cardiac Disorders: No Hx Congestive Heart Failure: No Hx Hypertension: Yes (poor adherence) Hx Hypercholesterolemia: Yes (on atorvastatin) Hx Pacemaker: No Hx Seizures: No Hx Dementia: No Hx Diabetes: Yes Hx Gastrointestinal Disorders: No Hx Liver Disease: No Hx Genitourinary Disorders: No Hx Sexually Transmitted Disorders: No Hx Renal Disease (ESRD): No Hx Thyroid Disease: No Hx Human Immunodeficiency Virus (HIV): No Hx Hepatitis C: No Hx Depression: Yes (not on meds) Hx Suicide Attempt: No (denies current suicidal ideation) Hx Bipolar Disorder: No Hx Schizophrenia: No Other Medical History: thromboycytopenia; sleep apnea - Patient Surgical History Past Surgical History: Yes Hx Neurologic Surgery: No Hx Cataract Extraction: No Hx Cardiac Surgery: No Hx Lung Surgery: No Hx Breast Surgery: No Hx Breast Biopsy: No Hx Abdominal Surgery: No Hx Appendectomy: No Hx Cholecystectomy: No Hx Section: Yes (Right Knee Surgery in the 80's) Hx Orthopedic Surgery: No Anesthesia Reaction: No - PPD History Previous Implant?: Yes Implanted On Prior R Admission?: Yes Date: 09/14/17 Results: 0 mm PPD to be Administered?: No - Reproductive History Patient is a Female of Child Bearing Age (11 -55 yrs old): No (male) - Smoking Cessation Smoking history: Current every day smoker Have you smoked in the past 12 months: Yes Aproximately how many cigarettes per day: 2 If you are a former smoker, when did you quit?: smokes marijuana, no cigarrette Hx Chewing Tobacco Use: No Initiated information on smoking cessation: Yes 'Breaking Loose' booklet given: 03/06/18 (give on floor) - Substance & Tx. History Hx Alcohol Use: Yes Hx Substance Use: Yes Substance Use Type: Alcohol, Cocaine, Heroin, Marijuana, Opiates Hx Substance Use Treatment: Yes (detox, methadone, ) - Substances Abused Non-Rx Methadone Route: Oral Frequency: 1-2 times per week Amount used: 10mg Age of first use: 62 Date of Last Use: 02/27/18 Heroin Route: Inhalation Frequency: Daily Amount used: 8 Age of first use: 15 Date of Last Use: 03/06/18 cocaine Route: Smoking Frequency: 1-2 times per week Amount used: $100 Age of first use: 16 Date of Last Use: 03/05/18 pot Route: Smoking Frequency: Daily Amount used: 4 blunts Age of first use: 15 Date of Last Use: 03/06/18 alcohol Route: Oral Frequency: 3-6 times per week Amount used: 2 shots Age of first use: 16 Date of Last Use: 03/05/18 suboxone Route: Oral Frequency: 1-2 times per week Amount used: 8mg Age of first use: 62 ([address]) Date of Last Use: 03/05/18 Family Disease History - Family Disease History Family Disease History: Diabetes: Brother (two - living - renal), Heart Disease : Father (, of Heart attack), Brother, Other: Mother ( of aneurysm), Brother, Sister (five - living , one uses drugs), Son (three - healthy), Daughter (one - healthy) Admission Physical Exam [facility] - Vital Signs Vital Signs: Vital Signs - 24 hr 03/06/18 10:42 Temperature 98.0 F Pulse Rate 87 Respiratory 18 Rate Blood Pressure 166/96 - Physical General Appearance: Yes: Nourished, Appropriately Dressed, Moderate Distress, Obese (morbid), Anxious HEENTM: Yes: EOMI, Hearing grossly Normal, Normocephalic, Normal Voice, Pharynx Normal Respiratory: Yes: Normal Breath Sounds, Other (dyspnea on exertion) Neck: Yes: No masses,lesions,Nodules Breast: Yes: Breast Exam Deferred Cardiology: Yes: Regular Rhythm, Regular Rate Abdominal: Yes: Flat, Soft, Protuberent Genitourinary: Yes: Frequency Back: Yes: Decreased Range of Motion Musculoskeletal: Yes: Back pain, Other (difficulty to walk - uses wheelchair) Extremities: Yes: Pedal Edema (mild edema both legs- some scratch moffett) Neurological: Yes: Alert, Normal Mood/Affect, Normal Response Integumentary: Yes: Normal Color, Dry, Warm, Other (erythematous, excoriated skin buttocks and posterior thighs) Lymphatic: Yes: Within Normal Limits - Diagnostic (1) Opioid dependence with uncomplicated intoxication Current Visit: Yes Status: Acute (2) Alcohol dependence with uncomplicated intoxication Current Visit: Yes Status: Chronic (3) Sleep apnea with use of continuous positive airway pressure (CPAP) Current Visit: Yes Status: Chronic (4) Cannabis dependence Current Visit: Yes Status: Acute (5) Back pain with right-sided sciatica Current Visit: Yes Status: Acute (6) Cocaine dependence Current Visit: No Status: Acute Qualifiers: Substance use status: uncomplicated Qualified Code(s): F14.20 - Cocaine dependence, uncomplicated (7) Asthma Current Visit: Yes Status: Chronic Qualifiers: Asthma severity: unspecified severity Asthma persistence: unspecified Asthma complication type: uncomplicated Qualified Code(s): J45.909 - Unspecified asthma, uncomplicated (8) BPH (benign prostatic hyperplasia) Current Visit: No Status: Chronic Qualifiers: Lower urinary tract symptom presence: unspecified whether lower urinary tract symptoms present Qualified Code(s): N40.0 - Benign prostatic hyperplasia without lower urinary tract symptoms (9) Diabetes mellitus type 2 in obese Current Visit: No Status: Chronic (10) HTN (hypertension) Current Visit: No Status: Chronic Qualifiers: Hypertension type: essential hypertension Qualified Code(s): I10 - Essential (primary) hypertension (11) Hypercholesteremia Current Visit: No Status: Chronic (12) Morbid obesity Current Visit: No Status: Chronic (13) Nicotine dependence Current Visit: No Status: Chronic Qualifiers: Nicotine product type: cigarettes Substance use status: uncomplicated Qualified Code(s): F17.210 - Nicotine dependence, cigarettes, uncomplicated (14) Mobility impaired Current Visit: Yes Status: Acute Cleared for Admission [facility] - Detox or Rehab [facility] Level of Care: Medically Managed Detox Regimen/Protocol: Methadone/Librium S Breath Alcohol Content Breath Alcohol Content: 0 Urine Drug Screen - Results Drug Screen Negative: No Urine Drug Screen Results: THC-Marijuana, MAYRA-Cocaine, OPI-Opiates, MTD- Methadone, OXY-Oxycodone SEE BELOW FOR [facility] SUMMARY Discharge Summary Patient Name: HOMERO BACA Date of : 1955 Patient Status: Observation Attending Provider: Vivian Joseph Date: 03/09/18 20:05 Initialization Date: 03/09/18 20:05 Physical Examination Vital Signs: Vital Signs Temperature 98.8 F 03/09/18 17:00 Pulse Rate 87 03/09/18 17:00 Respiratory Rate 18 03/09/18 17:00 Blood Pressure 148/85 03/09/18 17:00 O2 Sat by Pulse Oximetry (%) 96 03/09/18 09:00 Constitutional: Yes: No Distress HENT: Yes: Atraumatic Neck: Yes: Supple Cardiovascular: Yes: Regular Rate and Rhythm Respiratory: Yes: CTA Bilaterally Gastrointestinal: Yes: Normal Bowel Sounds Extremities: Yes: WNL Edema: Yes Edema: LLE: Trace, RLE: Trace Neurological: Yes: Alert, Oriented ...Motor Strength: WNL Labs: CBC, BMP 03/08/18 17:00 03/08/18 17:00 Discharge Summary Reason For Visit: CHEST PAIN Current Active Problems Chest pain (Acute) Condition: Stable - Instructions Diet, Activity, Other Instructions: fu neuro as out patient Referrals: Jose Harrison MD [Staff Physician] - - Home Medications Comprehensive Discharge Medication List: Ambulatory Orders Acetaminophen [Tylenol] 650 mg PO ASDIR 03/08/18 Albuterol Sulfate Inhaler - [Ventolin HFA Inhaler -] 1 - 2 inh PO QID 03/08/18 Atorvastatin Ca [Lipitor] 10 mg PO HS 03/08/18 Chlordiazepoxide [Librium -] 15 mg PO QID 03/08/18 Hydroxyzine HCl 25 mg PO Q4H 03/08/18 Ibuprofen [Motrin -] 400 mg PO Q6H 03/08/18 Lisinopril 5 mg PO DAILY 03/08/18 Loperamide HCl [Loperamide] 4 mg PO ASDIR 03/08/18 Mag Hydrox/Al Hydrox/Simeth [Mylanta Oral Suspension -] 30 ml PO ONCE 03/08/18 Magnesium Citrate [Citroma -] 150 ml PO BID 03/08/18 Magnesium Hydroxide [Milk of Magnesia] 30 ml PO DAILY 03/08/18 Melatonin 5 mg PO DAILY 03/08/18 Metformin HCl [Metformin HCl ER] 500 mg PO DAILY 03/08/18 Methadone [Dolophine -] 15 mg PO DAILY 03/08/18 Methyl Salicylate [Gordogesic] 75 gm TP BID 03/08/18 P-Ephed 60Mg/Triprolidi 2.5MG [Actifed -] 1 combo PO Q4H 03/08/18 Prenat 115/Iron Fum/Folic/Dss [ 19 Tablet] 1 each PO DAILY 03/08/18 Tamsulosin HCl [Flomax] 0.4 mg PO DAILY 03/08/18 Thiamine HCl [B-1] 100 mg PO HS 03/08/18 Zinc Oxide 1 applic TP BID 03/08/18 [facility] see neurology as out patient ema garcia at [facility] for further work up for neurological complaints Patient History - Patient Medical History Hx Anemia: No Hx Asthma: Yes (on inhaler) Hx Chronic Obstructive Pulmonary Disease (COPD): No Hx Cancer: No Hx Cardiac Disorders: No Hx Congestive Heart Failure: No Hx Hypertension: Yes Hx Hypercholesterolemia: Yes Hx Pacemaker: No Hx Seizures: No Hx Dementia: No Hx Diabetes: Yes Hx Gastrointestinal Disorders: No Hx Liver Disease: No Hx Genitourinary Disorders: No Hx Sexually Transmitted Disorders: No Hx Renal Disease (ESRD): No Hx Thyroid Disease: No Hx Human Immunodeficiency Virus (HIV): No Hx Hepatitis C: No Hx Depression: No Hx Suicide Attempt: No (denies current suicidal ideation) Hx Bipolar Disorder: No Hx Schizophrenia: No - Patient Surgical History Past Surgical History: Yes Hx Neurologic Surgery: No Hx Cataract Extraction: No Hx Cardiac Surgery: No Hx Lung Surgery: No Hx Breast Surgery: No Hx Breast Biopsy: No Hx Abdominal Surgery: No Hx Appendectomy: No Hx Cholecystectomy: No Hx Section: Yes (Right Knee Surgery in the 80's) Hx Orthopedic Surgery: No Anesthesia Reaction: No - PPD History Date: 09/14/17 Results: 0 mm - Smoking Cessation Smoking history: Current some day smoker Have you smoked in the past 12 months: Yes Aproximately how many cigarettes per day: 2 If you are a former smoker, when did you quit?: smokes marijuana, no cigarrette Hx Chewing Tobacco Use: No Family Disease History - Family Disease History Family Disease History: Diabetes: Brother (two - living - renal), Heart Disease : Father (, of Heart attack), Brother, Other: Mother ( of aneurysm), Brother, Sister (five - living , one uses drugs), Son (three - healthy), Daughter (one - healthy) Admission Physical Exam [facility] - Physical General Appearance: Yes: No Apparent Distress, Appropriately Dressed, Other ( SMELL LIKE URINE) HEENTM: Yes: EOMI, Normocephalic, [place] Respiratory: Yes: Chest Non-Tender, Lungs Clear, Normal Breath Sounds Cardiology: Yes: Regular Rhythm, Regular Rate, S1, S2 Neurological: Yes: Fully Oriented, Alert, Normal Mood/Affect [facility] Breath Alcohol Content Breath Alcohol Content: 0
[2018-03-10 00:19] VITALS: BMI 68.8
[2018-03-10] MEDS ORDERED: ALBUTEROL SO4 8 GM HFA INHALER IH ONE (01:17)
[2018-03-10] MEDS: hydrOXYzine PAMOATE 50 MG CAPSULE (FP) PO PRN ×3 (01:18→22:00)
[2018-03-10] MEDS: chlordiazePOXIDE HCL 25 MG CAPSULE PO PRN ×2 (01:18→18:01)
[2018-03-10] MEDS: chlordiazePOXIDE HCL 10 MG CAPSULE PO SCH ×4 (01:33→17:59)
[2018-03-10] MEDS: TAMSULOSIN HCL 0.4 MG CAP.ER.24H (FP) PO SCH (09:30)
[2018-03-10] MEDS ORDERED: ALBUTEROL SO4 8 GM HFA INHALER IH PRN (10:00)
[2018-03-10] MEDS ORDERED: METHADONE HCL 10 MG TABLET (FOR DETOX USE ONLY) PO SCH (10:00)
[2018-03-10] MEDS: LISINOPRIL 5 MG TABLET (FP) PO SCH (10:42)
[2018-03-10] MEDS: PRENATAL VITAMINS W/ FOLIC ACID TABLET (FP) PO SCH (10:42)
--- NOTE | 2018-03-10 13:31 | PN ---
[facility] Progress Note (SOAP) Subjective: PT RETURNED FROM [facility] LAST NIGHT AFTER HEALTH CLEARANCE FROM CHEST PATHOLOGY. PT IS ALERT O X 3. DENIES CHEST PAIN BUT SAYS NUMBNESS TO FINGER STILL THERE. Objective: 03/10/18 13:30 Vital Signs 03/10/18 03/10/18 06:27 09:14 Temperature 98.1 F 97.3 F L Pulse Rate 70 50 L Respiratory 22 18 Rate Blood Pressure 137/78 177/99 Laboratory Tests 03/10/18 05:57 POC Glucometer 135 Assessment: 03/10/18 13:30 WITHDRAWAL SX Plan: CONTINUE DETOX PT WILL FOLLOW UP WITH HIS PRIMARY CARE/NEUROLOGIST RE: LEFT HAND DISCOMFORT.
--- NOTE | 2018-03-10 15:25 | CONSULT ---
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 Substance Abuse History: Discussed in this interview.Mr Rito admits to a long- standing history of substance dependence.Details in current [facility] report as follows :Smoking history: Current every day smoker. Have you smoked in the past 12 months: Yes. Aproximately how many cigarettes per day: 2. If you are a former smoker, when did you quit?: smokes marijuana, no cigarrette. Hx Chewing Tobacco Use: No. Initiated information on smoking cessation: Yes. ' Breaking Loose' booklet given: 03/06/18 (give on floor). - Substance & Tx. History. Hx Alcohol Use: Yes. Hx Substance Use: Yes. Substance Use Type: Alcohol, Cocaine, Heroin, Marijuana, Opiates. Hx Substance Use Treatment: Yes ( detox, methadone, ). - Substances Abused. Non-Rx Methadone. Route: Oral. Frequency: 1-2 times per week. Amount used: 10mg. Age of first use: 62. Date of Last Use: 02/27/18. Heroin. Route: Inhalation. Frequency: Daily. Amount used: 8. Age of first use: 15. Date of Last Use: 03/06/18. cocaine. Route: Smoking. Frequency: 1-2 times per week. Amount used: $100. Age of first use: 16. Date of Last Use: 03/05/18. pot. Route: Smoking. Frequency: Daily. Amount used: 4 blunts. Age of first use: 15. Date of Last Use: 03/06/18. alcohol. Route: Oral. Frequency: 3-6 times per week. Amount used: 2 shots. Age of first use: 16. Date of Last Use: 03/05/18. suboxone. Route: Oral. Frequency: 1-2 times per week. Amount used: 8mg. Age of first use: 62 ([address]). Date of Last Use: 03/05/18 Medical History: Patient presents with a cohort of medical co-morbidities : morbid obesity,sleep apnea,benign prostatic hyperplasia,diabetes mellitus, thrombocytopenia,hypertension,dyslipidemia,bronchial asthma and a history of orthosurgery (right knee).Patient ambulates with a wheelchair on the unit. Psychiatric History: No reported history of psychiatric hospitalizations.Patient indicates that he has been prescribed seroquel to manage his insomnia (during his recent incarceration).Mr Veras has been released from [facility] in November 2017 after serving five years.Not on parole or probation.No history of psychiatric OPD care.Patient denies history of suicide attempts. Physical/Sexual Abuse/Trauma History: Mr Veras reports that he spent a total of 25 years in [facility] at different times under a variety of criminal charges. Additional Comment: Urine Drug Screen Results: THC-Marijuana, MAYRA-Cocaine, OPI- Opiates, MTD-Methadone, OXY-Oxycodone.Noted. Mental Status Exam - Mental Status Exam Alert and Oriented to: Time, Place, Person Cognitive Function: Good Patient Appearance: Well Groomed (morbidly obese,tattoos on both forearms) Mood: Sad, Withdrawn, Anxious Affect: Mood Congruent, Constricted Patient Behavior: Fatigued, Appropriate, Cooperative Speech Pattern: Clear, Appropriate Voice Loudness: Normal Thought Process: Intact, Goal Oriented Thought Disorder: Not Present Hallucinations: Denies Suicidal Ideation: Denies Homicidal Ideation: Denies Insight/Judgement: Poor Sleep: Fair Appetite: Good Gait/Station: Other (precarious ambulation; patient uses a walker) Psychiatric Findings - Problem List ([place] 1, 2,3) (1) Alcohol dependence with uncomplicated withdrawal Current Visit: Yes Status: Acute (2) Opioid dependence, uncomplicated Current Visit: Yes Status: Acute (3) Cannabis dependence Current Visit: Yes Status: Acute (4) Cocaine dependence Current Visit: Yes Status: Acute Qualifiers: Substance use status: uncomplicated Qualified Code(s): F14.20 - Cocaine dependence, uncomplicated (5) Nicotine dependence Current Visit: Yes Status: Acute Qualifiers: Nicotine product type: cigarettes Substance use status: in withdrawal Qualified Code(s): F17.213 - Nicotine dependence, cigarettes, with withdrawal (6) Substance induced mood disorder Current Visit: Yes Status: Acute (7) Insomnia Current Visit: Yes Status: Acute Comment: Mild. - Initial Treatment Plan Initial Treatment Plan: Psychoeducation.Sleep hygiene.Detoxification in progress.Insomnia is addressed with melatonin 5 mg po hs.Side effects/benefits discussed with the patient.Mr Veras agrees to this careplan.Supportive and group therapy.Falls precautions.Observation.
[2018-03-10] MEDS: METHYL SALICYLATE/MENTHOL OINT 30 GM TUBE TP SCH (21:59)
[2018-03-10] MEDS ORDERED: THIAMINE HCL 100 MG TABLET (FP) PO SCH (22:00)
[2018-03-10] MEDS ORDERED: ATORVASTATIN CA 10 MG TABLET (FP) PO SCH (22:00)
[2018-03-11] MEDS ORDERED: METHADONE HCL 5 MG TABLET (FOR DETOX USE ONLY) PO SCH (06:00)
[2018-03-11] MEDS: TAMSULOSIN HCL 0.4 MG CAP.ER.24H (FP) PO SCH (08:55)
[2018-03-11] MEDS: METHYL SALICYLATE/MENTHOL OINT 30 GM TUBE TP SCH (10:22)
[2018-03-11] MEDS: LISINOPRIL 5 MG TABLET (FP) PO SCH (10:22)
[2018-03-11] MEDS: PRENATAL VITAMINS W/ FOLIC ACID TABLET (FP) PO SCH (10:22)
[2018-03-11 10:50] VITALS: BP 128/87; PULSE 53; TEMP 97.4
--- NOTE | 2018-03-11 11:41 | PN ---
[facility] Progress Note (SOAP) Subjective: DETOX COMPLETED. ALERT O X 3, NAD. REFERRED TO [facility] FOR [facility]CARE TODAY. Objective: 03/11/18 11:40 Vital Signs 03/11/18 03/11/18 06:31 10:49 Temperature 97.2 F L 97.4 F L Pulse Rate 63 53 L Respiratory 20 16 Rate Blood Pressure 120/71 128/87 Laboratory Tests 03/10/18 03/10/18 03/11/18 05:57 16:33 07:12 POC Glucometer 135 120 95 Assessment: 03/11/18 11:40 MEDICALLY STABLE Plan: D/C PT TP REHAB TODAY
--- NOTE | 2018-03-11 11:45 | DS ---
[facility] Detox Discharge Summary Admission Date: 03/10/18 Discharge Date: 03/11/18 - History Present History: Alcohol Dependence, Opioid Dependence Additional Comments: DETOX COMPLETED. Pertinent Past History: PLEASE SEE DX BELOW - Physical Exam Results Vital Signs: Vital Signs Temperature 97.4 F L 03/11/18 10:49 Pulse Rate 53 L 03/11/18 10:49 Respiratory Rate 16 03/11/18 10:49 Blood Pressure 128/87 03/11/18 10:49 O2 Sat by Pulse Oximetry (%) Pertinent Admission Physical Exam Findings: WITHDRAWAL SX Laboratory Tests 03/10/18 03/10/18 03/11/18 05:57 16:33 07:12 POC Glucometer 135 120 95 - Treatment Hospital Course: Detox Protocol Followed, Detoxed Safely, Responded well, Discharged Condition Good, Rehab Referral Accepted Patient has Accepted a Rehab Referral to: [facility] - Medication Discharge Medications: Ambulatory Orders Acetaminophen [Tylenol] 650 mg PO ASDIR 03/08/18 Albuterol Sulfate Inhaler - [Ventolin HFA Inhaler -] 1 - 2 inh PO QID 03/08/18 Atorvastatin Ca [Lipitor] 10 mg PO HS 03/08/18 Chlordiazepoxide [Librium -] 15 mg PO QID 03/08/18 Hydroxyzine HCl 25 mg PO Q4H 03/08/18 Ibuprofen [Motrin -] 400 mg PO Q6H 03/08/18 Lisinopril 5 mg PO DAILY 03/08/18 Loperamide HCl [Loperamide] 4 mg PO ASDIR 03/08/18 Mag Hydrox/Al Hydrox/Simeth [Mylanta Oral Suspension -] 30 ml PO ONCE 03/08/18 Magnesium Citrate [Citroma -] 150 ml PO BID 03/08/18 Magnesium Hydroxide [Milk of Magnesia] 30 ml PO DAILY 03/08/18 Melatonin 5 mg PO DAILY 03/08/18 Metformin HCl [Metformin HCl ER] 500 mg PO DAILY 03/08/18 Methadone [Dolophine -] 15 mg PO DAILY 03/08/18 Methyl Salicylate [Gordogesic] 75 gm TP BID 03/08/18 P-Ephed 60Mg/Triprolidi 2.5MG [Actifed -] 1 combo PO Q4H 03/08/18 Prenat 115/Iron Fum/Folic/Dss [ 19 Tablet] 1 each PO DAILY 03/08/18 Tamsulosin HCl [Flomax] 0.4 mg PO DAILY 03/08/18 Thiamine HCl [B-1] 100 mg PO HS 03/08/18 Zinc Oxide 1 applic TP BID 03/08/18 - Diagnosis (1) Wheel chair as ambulatory aid Current Visit: Yes Status: Acute (2) Opioid dependence, uncomplicated Current Visit: Yes Status: Acute (3) Asthma Current Visit: Yes Status: Chronic Qualifiers: Asthma severity: unspecified severity Asthma persistence: unspecified Asthma complication type: unspecified Qualified Code(s): J45.909 - Unspecified asthma, uncomplicated (4) BPH (benign prostatic hyperplasia) Current Visit: Yes Status: Chronic Qualifiers: Lower urinary tract symptom presence: unspecified whether lower urinary tract symptoms present Qualified Code(s): N40.0 - Benign prostatic hyperplasia without lower urinary tract symptoms (5) Diabetes mellitus type 2 in obese Current Visit: Yes Status: Chronic (6) HTN (hypertension) Current Visit: Yes Status: Chronic Qualifiers: Hypertension type: essential hypertension Qualified Code(s): I10 - Essential (primary) hypertension (7) Hypercholesteremia Current Visit: Yes Status: Chronic (8) Lumbar herniated disc Current Visit: Yes Status: Chronic (9) Mobility impaired Current Visit: Yes Status: Chronic (10) Morbid obesity Current Visit: Yes Status: Chronic (11) Sleep apnea with use of continuous positive airway pressure (CPAP) Current Visit: Yes Status: Chronic (12) Alcohol dependence with uncomplicated withdrawal Current Visit: Yes Status: Acute - AMA Did Patient Leave Against Medical Advice: No
== END 2018-03-11 12:35 | disposition other institution (70) | DRG 897 ==
LOC: YASAS 23:21 → Y3N 03-10 00:22
PROC: HZ2ZZZZ Detoxification Services for Substance Abuse Treatment (ICD-10-PCS; principal; 2018-03-10)
DX: F11.20 Opioid dependence, uncomplicated (principal); F10.230 Alcohol dependence with withdrawal, uncomplicated; F14.20 Cocaine dependence, uncomplicated; F19.282 Other psychoactive substance dependence with psychoactive substance-induced sleep disorder; Z68.44 Body mass index [BMI] 60.0-69.9, adult; F12.20 Cannabis dependence, uncomplicated; F19.24 Other psychoactive substance dependence with psychoactive substance-induced mood disorder; I10 Essential (primary) hypertension; J45.909 Unspecified asthma, uncomplicated; E78.00 Pure hypercholesterolemia, unspecified; E11.69 Type 2 diabetes mellitus with other specified complication; Z79.84 Long term (current) use of oral hypoglycemic drugs; G47.30 Sleep apnea, unspecified; M54.41 Lumbago with sciatica, right side; M51.26 Other intervertebral disc displacement, lumbar region; N40.0 Benign prostatic hyperplasia without lower urinary tract symptoms; E66.01 Morbid (severe) obesity due to excess calories; R26.89 Other abnormalities of gait and mobility; Z99.3 Dependence on wheelchair; D69.6 Thrombocytopenia, unspecified; Z74.09 Other reduced mobility
CPT/HCPCS: 82962

== ENCOUNTER 2018-03-11 12:41 | Inpatient (IN) | payer OTHER ==
[2018-03-11] MEDS ORDERED: MENTHOL/PHENOL 1 EACH UD MM PRN (14:55)
[2018-03-11] MEDS ORDERED: LOPERAMIDE HCL 2 MG CAPSULE PO PRN (14:55)
[2018-03-11] MEDS ORDERED: MAGNESIUM CITRATE 300 ML BOTTLE PO PRN (14:55)
[2018-03-11] MEDS ORDERED: guaiFENesin/D-METHORPHAN HB 10 ML UNIT-DOSE CUPS PO PRN (14:55)
[2018-03-11] MEDS ORDERED: P-EPHED 60MG/TRIPROLIDI 2.5MG TABLET PO PRN (14:55)
[2018-03-11] MEDS ORDERED: MAGNESIUM HYDROX 2400MG/30ML ORAL SUSPENSION 30 ML CUP PO PRN (14:55)
--- NOTE | 2018-03-11 14:58 | HP ---
[facility] Rehab Assess/Revision - Admission History Admitted to Rehab from: [facility] [place] Date of Admission to Rehab: 03/11/18 - Vital signs Vital Signs: Vital Signs Period Temp Pulse Resp BP Sys/Lundy Pulse Ox Last 24 Hr 99 20 118/69 - Findings Detox History & Physical reviewed: Yes Concur with findings: Yes Inpatient Rehab Admission - Initial Determination Are CD services needed?: Yes Free of communicable disease: Yes Not in need of hospitalization: Yes - Rehab Admission Criteria Previous failed treatment: Yes Poor recovery environment: Yes Comorbidities: Yes Lacks judgement: Yes Patient is meeting Inpatient Rehab admission criteria:: Yes
[2018-03-11 15:15] VITALS: BMI 66.9
[2018-03-11] MEDS: ALBUTEROL SO4 8 GM HFA INHALER IH SCH ×2 (17:03→21:09)
[2018-03-11] MEDS: THIAMINE HCL 100 MG TABLET (FP) PO SCH (21:08)
[2018-03-11] MEDS: hydrOXYzine PAMOATE 25 MG CAPSULE (FP) PO PRN (21:10)
[2018-03-11] MEDS: ATORVASTATIN CA 10 MG TABLET (FP) PO SCH (21:10)
[2018-03-11] MEDS: ACETAMINOPHEN 325 MG TABLET (FP) PO PRN (21:10)
[2018-03-11] MEDS: HYDROCORTISONE 1% TOPICAL OINT 30 GM TUBE TP PRN (21:11)
[2018-03-11] MEDS ORDERED: METHYL SALICYLATE TP SCH (22:00)
[2018-03-11] MEDS ORDERED: ZINC OXIDE TP SCH (22:00)
[2018-03-12] MEDS: TAMSULOSIN HCL 0.4 MG CAP.ER.24H (FP) PO SCH (08:05)
[2018-03-12] MEDS ORDERED: PNEUMOC 13-VAL CONJ-DIP CRM/PF 0.5 ML DISP.SYRIN IM ONE (10:00)
[2018-03-12] MEDS ORDERED: PATIENT'S OWN MEDICATION (NON-FORMULARY) (Metformin Hcl [Metformin Hcl Er] 500 MG) PO SCH (10:00)
[2018-03-12] MEDS: LISINOPRIL 5 MG TABLET (FP) PO SCH (10:05)
[2018-03-12] MEDS: PRENATAL VITAMINS W/ FOLIC ACID TABLET (FP) PO SCH (10:05)
[2018-03-12] MEDS: ALBUTEROL SO4 8 GM HFA INHALER IH SCH ×4 (10:06→21:28)
[2018-03-12] MEDS ORDERED: PNEUMOCOCCAL 23 VACCINE 0.5 ML VIAL IM ONE (12:00)
--- NOTE | 2018-03-12 12:06 | HP ---
Psychiatrist Admission - Data Date of interview: 03/12/18 Admission source: [address] [place] [address] Identifying data: This is the second admission to [address] [place] [address] for this [address] father of 4 grown children,resides in [place],supported by [facility]. Medical History: Obesity,BPH,HTN,BA,DM,neuropathy,Herniated lumbar disk, Hyperlipidemia. Psychiatric History: No previous psychiatric treatment,no suicidal attempts no psychiatric admissions reported.Patient states he has some sleeping difficulties on and off. Physical/Sexual Abuse/Trauma History: denies Additional Comment: [facility] November 2016 after serving 5 years.Spent total about 5 years of penitentiary time for different criminal charges. Vital Signs: Vital Signs - 24 hr 03/11/18 03/12/18 03/12/18 13:42 00:30 03:30 Temperature Pulse Rate 99 H Respiratory 20 20 20 Rate Blood Pressure 118/69 03/12/18 07:03 Temperature 97.7 F Pulse Rate 77 Respiratory 20 Rate Blood Pressure 149/90 Allergies/Adverse Reactions: Allergies Allergy/AdvReac Type Severity Reaction Status Date / Time No Known Drug Allergies Allergy Verified 03/10/18 06:11 Date of last physical exam: 03/10/18 Concur with the findings of this exam: Yes - Substance Abuse/Tx History Hx Alcohol Use: Yes (socially on and off) Hx Substance Use: Yes (cocaine since 16 yo,heroin since 16 yo,15-20 bags daily) Substance Use Type: Alcohol, Cocaine, Heroin Hx Substance Use Treatment: Yes ( in October 2017) Mental Status Exam - Mental Status Exam Alert and Oriented to: Time, Place, Person Cognitive Function: Grossly Intact Patient Appearance: Unkempt Mood: Sad, Anxious Affect: Mood Congruent, Labile Patient Behavior: Cooperative Speech Pattern: Clear Voice Loudness: Normal Thought Process: Goal Oriented Thought Disorder: Not Present Hallucinations: Denies Suicidal Ideation: Denies Homicidal Ideation: Denies Insight/Judgement: Fair Sleep: Difficulty falling asleep Appetite: Good (morbid obesity) Muscle strength/Tone: Mild Hypotonicity Gait/Station: Other (wheelchair bound) Psychiatric Findings - Problem List ([place] 1, 2,3) (1) Alcohol dependence Current Visit: Yes Status: Chronic (2) Cannabis dependence Current Visit: Yes Status: Chronic (3) Cocaine dependence Current Visit: Yes Status: Chronic Qualifiers: (4) Opioid dependence Current Visit: Yes Status: Chronic (5) Diabetes mellitus type 2 in obese Current Visit: Yes Status: Chronic (6) HTN (hypertension) Current Visit: Yes Status: Chronic Qualifiers: Hypertension type: essential hypertension (7) Hypercholesteremia Current Visit: Yes Status: Chronic (8) Lumbar herniated disc Current Visit: Yes Status: Chronic (9) Sleep apnea with use of continuous positive airway pressure (CPAP) Current Visit: Yes Status: Chronic (10) Substance-induced sleep disorder Current Visit: Yes Status: Chronic (11) Wheel chair as ambulatory aid Current Visit: Yes Status: Chronic (12) Asthma Current Visit: Yes Status: Chronic Qualifiers: Asthma severity: unspecified severity Asthma persistence: unspecified Asthma complication type: unspecified Qualified Code(s): J45.909 - Unspecified asthma, uncomplicated (13) BPH (benign prostatic hyperplasia) Current Visit: Yes Status: Chronic Qualifiers: Lower urinary tract symptom presence: unspecified whether lower urinary tract symptoms present Qualified Code(s): N40.0 - Benign prostatic hyperplasia without lower urinary tract symptoms (14) Morbid obesity Current Visit: Yes Status: Chronic - Initial Treatment Plan Initial Treatment Plan: Trazodone 50 mg po hs.Will monitor progress.
[2018-03-12] MEDS: ATORVASTATIN CA 10 MG TABLET (FP) PO SCH (21:28)
[2018-03-12] MEDS: THIAMINE HCL 100 MG TABLET (FP) PO SCH (21:28)
[2018-03-12] MEDS: traZODone HCL 50 MG TABLET (FP) PO SCH (21:28)
[2018-03-12] MEDS: hydrOXYzine PAMOATE 25 MG CAPSULE (FP) PO PRN (21:28)
[2018-03-13] MEDS: TAMSULOSIN HCL 0.4 MG CAP.ER.24H (FP) PO SCH (07:43)
--- NOTE | 2018-03-13 07:48 | PN ---
[facility] Progress Note (SOAP) Subjective: Left arm numbness and tingling with mild pain Objective: 03/13/18 07:42 No swelling, no limitation in movement, unable to feel light touch Assessment: Patient was evaluated in the ED for c/o chest pain and left arm paresthesia. Cardiac work up was negative, he was advised to follow up with neurology upon discharge. His symptoms are consistent with peripheral neuropathy, further work up needed. 03/13/18 07:42 Plan: Continue to monitor, may benefit from gabapentin if symptoms do not improve
[2018-03-13] MEDS: LISINOPRIL 5 MG TABLET (FP) PO SCH (09:14)
[2018-03-13] MEDS: PRENATAL VITAMINS W/ FOLIC ACID TABLET (FP) PO SCH (09:14)
[2018-03-13] MEDS: ALBUTEROL SO4 8 GM HFA INHALER IH SCH ×4 (09:17→22:32)
[2018-03-13] MEDS: hydrOXYzine PAMOATE 25 MG CAPSULE (FP) PO PRN (22:02)
[2018-03-13] MEDS: ATORVASTATIN CA 10 MG TABLET (FP) PO SCH (22:02)
[2018-03-13] MEDS: traZODone HCL 50 MG TABLET (FP) PO SCH (22:02)
[2018-03-13] MEDS: THIAMINE HCL 100 MG TABLET (FP) PO SCH (22:02)
[2018-03-13] MEDS: MELATONIN 5 MG TABLETS PO PRN (22:03)
[2018-03-14] MEDS: TAMSULOSIN HCL 0.4 MG CAP.ER.24H (FP) PO SCH (07:53)
[2018-03-14] MEDS: LISINOPRIL 5 MG TABLET (FP) PO SCH (09:49)
[2018-03-14] MEDS: PRENATAL VITAMINS W/ FOLIC ACID TABLET (FP) PO SCH (09:49)
[2018-03-14] MEDS: ALBUTEROL SO4 8 GM HFA INHALER IH SCH ×4 (09:52→21:31)
[2018-03-14] MEDS: ACETAMINOPHEN 325 MG TABLET (FP) PO PRN ×3 (10:15→19:29)
[2018-03-14] MEDS: MAG HYDROX/AL HYDROX/SIMETH 30 ML UNIT-DOSE CUP PO PRN ×2 (10:15→19:53)
[2018-03-14] MEDS: THIAMINE HCL 100 MG TABLET (FP) PO SCH (21:30)
[2018-03-14] MEDS: MELATONIN 5 MG TABLETS PO PRN (21:30)
[2018-03-14] MEDS: ATORVASTATIN CA 10 MG TABLET (FP) PO SCH (21:30)
[2018-03-14] MEDS: traZODone HCL 50 MG TABLET (FP) PO SCH (21:30)
[2018-03-15] MEDS: TAMSULOSIN HCL 0.4 MG CAP.ER.24H (FP) PO SCH (08:17)
[2018-03-15] MEDS: PRENATAL VITAMINS W/ FOLIC ACID TABLET (FP) PO SCH (10:18)
[2018-03-15] MEDS: LISINOPRIL 5 MG TABLET (FP) PO SCH (10:18)
[2018-03-15] MEDS: ALBUTEROL SO4 8 GM HFA INHALER IH SCH ×4 (10:18→21:28)
--- NOTE | 2018-03-15 14:52 | PN ---
[facility] Progress Note Note: Vital Signs (72 hours) 03/13/18 03/13/18 03/13/18 00:30 03:30 07:02 Temperature 97.5 F L Pulse Rate 81 Respiratory 18 18 18 Rate Blood Pressure 145/89 03/13/18 03/14/18 03/14/18 10:00 00:30 03:30 Temperature Pulse Rate 76 Respiratory 18 18 Rate Blood Pressure 129/82 03/14/18 03/14/18 03/15/18 07:02 10:05 00:30 Temperature 98.6 F Pulse Rate 72 80 Respiratory 18 20 Rate Blood Pressure 170/94 160/89 03/15/18 03/15/18 03/15/18 03:30 06:58 09:30 Temperature 97.5 F L Pulse Rate 83 90 Respiratory 20 18 18 Rate Blood Pressure 145/84 158/95 Patient c/o of left hand and numbness and tingling with mild pain, non- radiating or changing in nature. Patient AOx3 no distress full ROM, getting around in manual chair, which he is able to self propel No swelling, no limitation in movement, unable to feel light touch Patient was evaluated in the ED 03/10/18 for c/o chest pain and left arm paresthesia. Cardiac work up was negative, he was advised to follow up with neurology upon discharge. His symptoms are consistent with peripheral neuropathy Plan: BP elevated increase lisinopril from 5mg to 10 mg qd NSAIDS PRN Continue to monitor
[2018-03-15] MEDS: THIAMINE HCL 100 MG TABLET (FP) PO SCH (21:26)
[2018-03-15] MEDS: traZODone HCL 50 MG TABLET (FP) PO SCH (21:26)
[2018-03-15] MEDS: ATORVASTATIN CA 10 MG TABLET (FP) PO SCH (21:26)
[2018-03-15] MEDS: MELATONIN 5 MG TABLETS PO PRN (21:26)
[2018-03-15] MEDS: HYDROCORTISONE 1% TOPICAL OINT 30 GM TUBE TP PRN (21:27)
--- NOTE | 2018-03-15 23:37 | PN ---
[facility] Progress Note Note: Patient was seen at bedside with complaint of hitting his right knee on the toilet seat while trying to get up. Rates pain now at 3/10 and tolerable Action : . No visible injury or redness noted or reported. Vital signs stable. Action: Cold compress ordered as needed
[2018-03-16] MEDS: IBUPROFEN 400 MG TABLET (FP) PO PRN ×3 (02:50→21:49)
[2018-03-16] MEDS: ACETAMINOPHEN 325 MG TABLET (FP) PO PRN (06:41)
[2018-03-16] MEDS: TAMSULOSIN HCL 0.4 MG CAP.ER.24H (FP) PO SCH (08:26)
[2018-03-16] MEDS: PRENATAL VITAMINS W/ FOLIC ACID TABLET (FP) PO SCH (10:26)
[2018-03-16] MEDS: LISINOPRIL 10 MG TABLET (FP) PO SCH (10:26)
[2018-03-16] MEDS: ALBUTEROL SO4 8 GM HFA INHALER IH SCH ×4 (10:27→21:48)
[2018-03-16] MEDS: COLLOIDAL OATMEAL 1 BAR EACH TP PRN (21:47)
[2018-03-16] MEDS: MELATONIN 5 MG TABLETS PO PRN (21:48)
[2018-03-16] MEDS: ATORVASTATIN CA 10 MG TABLET (FP) PO SCH (21:48)
[2018-03-16] MEDS: THIAMINE HCL 100 MG TABLET (FP) PO SCH (21:48)
[2018-03-16] MEDS: traZODone HCL 50 MG TABLET (FP) PO SCH (21:48)
[2018-03-17] MEDS: TAMSULOSIN HCL 0.4 MG CAP.ER.24H (FP) PO SCH (09:12)
[2018-03-17] MEDS: PRENATAL VITAMINS W/ FOLIC ACID TABLET (FP) PO SCH (10:12)
[2018-03-17] MEDS: LISINOPRIL 10 MG TABLET (FP) PO SCH (10:12)
[2018-03-17] MEDS: ALBUTEROL SO4 8 GM HFA INHALER IH SCH ×4 (10:13→22:18)
[2018-03-17] MEDS: IBUPROFEN 400 MG TABLET (FP) PO PRN (10:13)
[2018-03-17] MEDS: hydrOXYzine PAMOATE 25 MG CAPSULE (FP) PO PRN ×3 (13:03→22:16)
[2018-03-17] MEDS: MAG HYDROX/AL HYDROX/SIMETH 30 ML UNIT-DOSE CUP PO PRN (19:48)
[2018-03-17] MEDS: traZODone HCL 50 MG TABLET (FP) PO SCH (22:16)
[2018-03-17] MEDS: ATORVASTATIN CA 10 MG TABLET (FP) PO SCH (22:16)
[2018-03-17] MEDS: THIAMINE HCL 100 MG TABLET (FP) PO SCH (22:16)
[2018-03-17] MEDS: MELATONIN 5 MG TABLETS PO PRN (22:17)
[2018-03-18] MEDS: MAG HYDROX/AL HYDROX/SIMETH 30 ML UNIT-DOSE CUP PO PRN ×2 (07:01→14:28)
[2018-03-18] MEDS: hydrOXYzine PAMOATE 25 MG CAPSULE (FP) PO PRN ×3 (07:01→21:32)
[2018-03-18] MEDS: TAMSULOSIN HCL 0.4 MG CAP.ER.24H (FP) PO SCH (09:30)
[2018-03-18] MEDS: ALBUTEROL SO4 8 GM HFA INHALER IH SCH ×4 (11:00→21:33)
[2018-03-18] MEDS: PRENATAL VITAMINS W/ FOLIC ACID TABLET (FP) PO SCH (11:00)
[2018-03-18] MEDS: LISINOPRIL 10 MG TABLET (FP) PO SCH (11:00)
[2018-03-18] MEDS: THIAMINE HCL 100 MG TABLET (FP) PO SCH (21:32)
[2018-03-18] MEDS: traZODone HCL 50 MG TABLET (FP) PO SCH (21:32)
[2018-03-18] MEDS: MELATONIN 5 MG TABLETS PO PRN (21:32)
[2018-03-18] MEDS: ATORVASTATIN CA 10 MG TABLET (FP) PO SCH (21:32)
[2018-03-19] MEDS: TAMSULOSIN HCL 0.4 MG CAP.ER.24H (FP) PO SCH (08:26)
[2018-03-19] MEDS: PRENATAL VITAMINS W/ FOLIC ACID TABLET (FP) PO SCH (10:26)
[2018-03-19] MEDS: LISINOPRIL 10 MG TABLET (FP) PO SCH (10:26)
[2018-03-19] MEDS: ALBUTEROL SO4 8 GM HFA INHALER IH SCH ×4 (10:29→22:09)
[2018-03-19] MEDS ORDERED: BENZOCAINE 28 GM HEMORRHOIDAL OINTMENT PR PRN (14:33)
--- NOTE | 2018-03-19 14:38 | PN ---
[facility] Progress Note (SOAP) Subjective: c/o constipation. When strains hemorrhoids start to bleed a little. Objective: Abd soft/BS+. Protuberant abd r/t increased adiposity. Assessment: Constipation. Plan: Colace Hemmoroidal cream increase water intake. Continue rehab.
[2018-03-19] MEDS: MELATONIN 5 MG TABLETS PO PRN (21:52)
[2018-03-19] MEDS: ATORVASTATIN CA 10 MG TABLET (FP) PO SCH (21:52)
[2018-03-19] MEDS: traZODone HCL 50 MG TABLET (FP) PO SCH (21:52)
[2018-03-19] MEDS: DOCUSATE SODIUM 100 MG CAPSULE (FP) PO SCH (21:52)
[2018-03-19] MEDS: THIAMINE HCL 100 MG TABLET (FP) PO SCH (21:52)
[2018-03-19] MEDS: hydrOXYzine PAMOATE 25 MG CAPSULE (FP) PO PRN (21:54)
[2018-03-20] MEDS: DOCUSATE SODIUM 100 MG CAPSULE (FP) PO SCH ×3 (06:47→21:27)
[2018-03-20] MEDS: TAMSULOSIN HCL 0.4 MG CAP.ER.24H (FP) PO SCH (09:30)
[2018-03-20] MEDS: PRENATAL VITAMINS W/ FOLIC ACID TABLET (FP) PO SCH (10:29)
[2018-03-20] MEDS: LISINOPRIL 10 MG TABLET (FP) PO SCH (10:29)
[2018-03-20] MEDS: ALBUTEROL SO4 8 GM HFA INHALER IH SCH ×4 (10:29→21:27)
[2018-03-20] MEDS: MELATONIN 5 MG TABLETS PO PRN (21:25)
[2018-03-20] MEDS: traZODone HCL 50 MG TABLET (FP) PO SCH (21:25)
[2018-03-20] MEDS: THIAMINE HCL 100 MG TABLET (FP) PO SCH (21:25)
[2018-03-20] MEDS: ATORVASTATIN CA 10 MG TABLET (FP) PO SCH (21:25)
[2018-03-21] MEDS: DOCUSATE SODIUM 100 MG CAPSULE (FP) PO SCH ×3 (07:08→21:49)
[2018-03-21] MEDS: TAMSULOSIN HCL 0.4 MG CAP.ER.24H (FP) PO SCH (08:46)
[2018-03-21] MEDS: ALBUTEROL SO4 8 GM HFA INHALER IH SCH ×4 (09:46→22:15)
[2018-03-21] MEDS: PRENATAL VITAMINS W/ FOLIC ACID TABLET (FP) PO SCH (09:46)
[2018-03-21] MEDS: LISINOPRIL 10 MG TABLET (FP) PO SCH (09:46)
[2018-03-21] MEDS: hydrOXYzine PAMOATE 25 MG CAPSULE (FP) PO PRN (09:49)
[2018-03-21] MEDS: THIAMINE HCL 100 MG TABLET (FP) PO SCH (21:49)
[2018-03-21] MEDS: ATORVASTATIN CA 10 MG TABLET (FP) PO SCH (21:49)
[2018-03-21] MEDS: traZODone HCL 50 MG TABLET (FP) PO SCH (21:49)
[2018-03-21] MEDS: MELATONIN 5 MG TABLETS PO PRN (21:49)
[2018-03-22] MEDS: DOCUSATE SODIUM 100 MG CAPSULE (FP) PO SCH ×3 (07:45→22:10)
[2018-03-22] MEDS: TAMSULOSIN HCL 0.4 MG CAP.ER.24H (FP) PO SCH (07:45)
[2018-03-22] MEDS: hydrOXYzine PAMOATE 25 MG CAPSULE (FP) PO PRN ×2 (09:47→22:11)
[2018-03-22] MEDS: LISINOPRIL 10 MG TABLET (FP) PO SCH (09:47)
[2018-03-22] MEDS: PRENATAL VITAMINS W/ FOLIC ACID TABLET (FP) PO SCH (09:47)
[2018-03-22] MEDS: IBUPROFEN 400 MG TABLET (FP) PO PRN (09:48)
[2018-03-22] MEDS: ALBUTEROL SO4 8 GM HFA INHALER IH SCH ×4 (09:50→22:11)
--- NOTE | 2018-03-22 14:12 | PN ---
S Progress Note Note: Vital Signs Temp 98.3 F 03/22/18 07:47 Pulse 73 03/22/18 09:30 Resp 18 03/22/18 07:47 BP 165/92 03/22/18 09:30 Pulse Ox c/o of back and knee pain AOx3 no distress full ROM, get around in manual chair independently back pain acetaminophen prn lidocaine patch increase fluids ambulate continue to monitor
[2018-03-22] MEDS ORDERED: PT OWN MED DRAWER 7, Y5N ONE (14:17)
[2018-03-22] MEDS: LIDOCAINE 5% TOPICAL PATCH TP SCH (15:01)
[2018-03-22] MEDS: traZODone HCL 50 MG TABLET (FP) PO SCH (22:10)
[2018-03-22] MEDS: ATORVASTATIN CA 10 MG TABLET (FP) PO SCH (22:10)
[2018-03-22] MEDS: LIDOCAINE PATCH REMOVAL MC SCH (22:11)
[2018-03-22] MEDS: THIAMINE HCL 100 MG TABLET (FP) PO SCH (22:11)
[2018-03-23] MEDS: DOCUSATE SODIUM 100 MG CAPSULE (FP) PO SCH ×3 (06:27→21:52)
[2018-03-23] MEDS: IBUPROFEN 400 MG TABLET (FP) PO PRN (08:36)
[2018-03-23] MEDS: hydrOXYzine PAMOATE 25 MG CAPSULE (FP) PO PRN (08:36)
[2018-03-23] MEDS: TAMSULOSIN HCL 0.4 MG CAP.ER.24H (FP) PO SCH (08:36)
[2018-03-23] MEDS: LISINOPRIL 10 MG TABLET (FP) PO SCH (10:40)
[2018-03-23] MEDS: LIDOCAINE 5% TOPICAL PATCH TP SCH (10:40)
[2018-03-23] MEDS: ALBUTEROL SO4 8 GM HFA INHALER IH SCH ×4 (10:40→21:52)
[2018-03-23] MEDS: PRENATAL VITAMINS W/ FOLIC ACID TABLET (FP) PO SCH (10:40)
[2018-03-23] MEDS ORDERED: cloNIDine HCL 0.1 MG TABLET PO ONE (10:52)
--- NOTE | 2018-03-23 10:54 | PN ---
[facility] Progress Note Note: Notified by RN patient c/o pounding headache. Has hx of HTN and given morning medication. BP repeated and remains elevated at 160/92. No reports of chest pain or SOB given. Will order clonidine 0.2mg po x one dose now. Continue to monitor clinically.
[2018-03-23] MEDS ORDERED: PT OWN MED DRAWER 7, Y5N ONE (10:56)
[2018-03-23] MEDS: ACETAMINOPHEN 325 MG TABLET (FP) PO PRN (10:57)
[2018-03-23] MEDS: THIAMINE HCL 100 MG TABLET (FP) PO SCH (21:52)
[2018-03-23] MEDS: ATORVASTATIN CA 10 MG TABLET (FP) PO SCH (21:52)
[2018-03-23] MEDS: MELATONIN 5 MG TABLETS PO PRN (21:52)
[2018-03-23] MEDS: traZODone HCL 50 MG TABLET (FP) PO SCH (21:52)
[2018-03-23] MEDS: LIDOCAINE PATCH REMOVAL MC SCH (21:56)
[2018-03-24] MEDS: DOCUSATE SODIUM 100 MG CAPSULE (FP) PO SCH ×3 (06:31→22:00)
[2018-03-24] MEDS: ALBUTEROL SO4 8 GM HFA INHALER IH PRN (07:33)
[2018-03-24] MEDS: TAMSULOSIN HCL 0.4 MG CAP.ER.24H (FP) PO SCH (08:52)
[2018-03-24] MEDS: PRENATAL VITAMINS W/ FOLIC ACID TABLET (FP) PO SCH (09:52)
[2018-03-24] MEDS: LISINOPRIL 10 MG TABLET (FP) PO SCH (09:52)
[2018-03-24] MEDS: LIDOCAINE 5% TOPICAL PATCH TP SCH (09:53)
[2018-03-24] MEDS: hydrOXYzine PAMOATE 25 MG CAPSULE (FP) PO PRN (09:55)
[2018-03-24] MEDS ORDERED: ALBUTEROL SO4 2.5/IPRATROPIUM 0.5 INH SOL 3 ML VIAL.NEB. NEB PRN (14:35)
--- NOTE | 2018-03-24 14:38 | PN ---
S Progress Note Note: Vital Signs Temperature 97.9 F 03/24/18 06:54 Pulse Rate 72 03/24/18 09:30 Respiratory Rate 18 03/24/18 09:30 Blood Pressure 138/61 03/24/18 09:30 O2 Sat by Pulse Oximetry (%) c/o of mild chest tightness, reports using his inhaler 2x this AM. Patient Aox3 no distress + wheezing b/l s1 s2 no JVD full ROM using wheelchair to get around wheezing secondary to asthma duoneb pRN increase fluids continue to monitor
[2018-03-24] MEDS: ATORVASTATIN CA 10 MG TABLET (FP) PO SCH (22:00)
[2018-03-24] MEDS: THIAMINE HCL 100 MG TABLET (FP) PO SCH (22:00)
[2018-03-24] MEDS: traZODone HCL 50 MG TABLET (FP) PO SCH (22:00)
[2018-03-24] MEDS: MELATONIN 5 MG TABLETS PO PRN (22:01)
[2018-03-24] MEDS: ACETAMINOPHEN 325 MG TABLET (FP) PO PRN (22:01)
[2018-03-24] MEDS: LIDOCAINE PATCH REMOVAL MC SCH (22:09)
[2018-03-25] MEDS: DOCUSATE SODIUM 100 MG CAPSULE (FP) PO SCH ×3 (06:58→21:53)
[2018-03-25] MEDS: ACETAMINOPHEN 325 MG TABLET (FP) PO PRN (07:00)
[2018-03-25] MEDS ORDERED: cloNIDine HCL 0.1 MG TABLET PO ONE (07:08)
--- NOTE | 2018-03-25 07:10 | PN ---
[facility] Progress Note Note: .Patient's blood pressure is B/P 161/ 116. Patient is asymptomatic. Vital Signs Temperature 98.5 F 03/25/18 07:08 Pulse Rate 116 H 03/25/18 07:08 Respiratory Rate 24 03/25/18 07:08 Blood Pressure 161/116 03/25/18 07:08 O2 Sat by Pulse Oximetry (%) ACTION: Clonidine 0.1mg tablet oral
[2018-03-25] MEDS: LISINOPRIL 10 MG TABLET (FP) PO SCH (09:21)
[2018-03-25] MEDS: LIDOCAINE 5% TOPICAL PATCH TP SCH (09:21)
[2018-03-25] MEDS: TAMSULOSIN HCL 0.4 MG CAP.ER.24H (FP) PO SCH (09:21)
[2018-03-25] MEDS: PRENATAL VITAMINS W/ FOLIC ACID TABLET (FP) PO SCH (09:21)
[2018-03-25] MEDS: LIDOCAINE PATCH REMOVAL MC SCH (21:53)
[2018-03-25] MEDS: traZODone HCL 50 MG TABLET (FP) PO SCH (21:53)
[2018-03-25] MEDS: MELATONIN 5 MG TABLETS PO PRN (21:53)
[2018-03-25] MEDS: THIAMINE HCL 100 MG TABLET (FP) PO SCH (21:53)
[2018-03-25] MEDS: ATORVASTATIN CA 10 MG TABLET (FP) PO SCH (21:53)
[2018-03-25] MEDS: hydrOXYzine PAMOATE 25 MG CAPSULE (FP) PO PRN (21:53)
[2018-03-26] MEDS: DOCUSATE SODIUM 100 MG CAPSULE (FP) PO SCH ×3 (07:06→22:28)
[2018-03-26] MEDS: TAMSULOSIN HCL 0.4 MG CAP.ER.24H (FP) PO SCH (07:45)
[2018-03-26] MEDS: LISINOPRIL 10 MG TABLET (FP) PO SCH (09:25)
[2018-03-26] MEDS: PRENATAL VITAMINS W/ FOLIC ACID TABLET (FP) PO SCH (09:25)
[2018-03-26] MEDS: LIDOCAINE 5% TOPICAL PATCH TP SCH (09:25)
[2018-03-26] MEDS: ALBUTEROL SO4 8 GM HFA INHALER IH PRN (09:27)
[2018-03-26] MEDS: LIDOCAINE PATCH REMOVAL MC SCH (22:27)
[2018-03-26] MEDS: traZODone HCL 50 MG TABLET (FP) PO SCH (22:27)
[2018-03-26] MEDS: MELATONIN 5 MG TABLETS PO PRN (22:27)
[2018-03-26] MEDS: hydrOXYzine PAMOATE 25 MG CAPSULE (FP) PO PRN (22:27)
[2018-03-26] MEDS: THIAMINE HCL 100 MG TABLET (FP) PO SCH (22:27)
[2018-03-26] MEDS: ATORVASTATIN CA 10 MG TABLET (FP) PO SCH (22:27)
[2018-03-27] MEDS: DOCUSATE SODIUM 100 MG CAPSULE (FP) PO SCH ×3 (07:36→21:57)
[2018-03-27] MEDS: TAMSULOSIN HCL 0.4 MG CAP.ER.24H (FP) PO SCH (08:04)
[2018-03-27] MEDS: COLLOIDAL OATMEAL 1 BAR EACH TP PRN (08:29)
[2018-03-27] MEDS: PRENATAL VITAMINS W/ FOLIC ACID TABLET (FP) PO SCH (09:40)
[2018-03-27] MEDS: LISINOPRIL 10 MG TABLET (FP) PO SCH (09:40)
[2018-03-27] MEDS: LIDOCAINE 5% TOPICAL PATCH TP SCH (09:40)
[2018-03-27] MEDS: IBUPROFEN 400 MG TABLET (FP) PO PRN (21:57)
[2018-03-27] MEDS: hydrOXYzine PAMOATE 25 MG CAPSULE (FP) PO PRN (21:57)
[2018-03-27] MEDS: traZODone HCL 50 MG TABLET (FP) PO SCH (21:57)
[2018-03-27] MEDS: ATORVASTATIN CA 10 MG TABLET (FP) PO SCH (21:57)
[2018-03-27] MEDS: THIAMINE HCL 100 MG TABLET (FP) PO SCH (21:58)
[2018-03-27] MEDS: LIDOCAINE PATCH REMOVAL MC SCH (21:58)
[2018-03-28] MEDS: DOCUSATE SODIUM 100 MG CAPSULE (FP) PO SCH ×3 (07:18→22:05)
[2018-03-28] MEDS: TAMSULOSIN HCL 0.4 MG CAP.ER.24H (FP) PO SCH (07:30)
[2018-03-28] MEDS: LIDOCAINE 5% TOPICAL PATCH TP SCH (09:47)
[2018-03-28] MEDS: LISINOPRIL 10 MG TABLET (FP) PO SCH (09:47)
[2018-03-28] MEDS: PRENATAL VITAMINS W/ FOLIC ACID TABLET (FP) PO SCH (09:47)
[2018-03-28] MEDS: ACETAMINOPHEN 325 MG TABLET (FP) PO PRN (09:48)
[2018-03-28] MEDS: hydrOXYzine PAMOATE 25 MG CAPSULE (FP) PO PRN (22:05)
[2018-03-28] MEDS: ATORVASTATIN CA 10 MG TABLET (FP) PO SCH (22:05)
[2018-03-28] MEDS: traZODone HCL 50 MG TABLET (FP) PO SCH (22:05)
[2018-03-28] MEDS: MELATONIN 5 MG TABLETS PO PRN (22:06)
[2018-03-28] MEDS: LIDOCAINE PATCH REMOVAL MC SCH (22:07)
[2018-03-28] MEDS: THIAMINE HCL 100 MG TABLET (FP) PO SCH (22:08)
[2018-03-29] MEDS: DOCUSATE SODIUM 100 MG CAPSULE (FP) PO SCH ×3 (06:46→22:11)
[2018-03-29] MEDS ORDERED: ALBUTEROL SO4 2.5/IPRATROPIUM 0.5 INH SOL 3 ML VIAL.NEB. NEB PRN (07:19)
[2018-03-29] MEDS: TAMSULOSIN HCL 0.4 MG CAP.ER.24H (FP) PO SCH (09:30)
[2018-03-29] MEDS: LISINOPRIL 10 MG TABLET (FP) PO SCH (09:32)
[2018-03-29] MEDS: PRENATAL VITAMINS W/ FOLIC ACID TABLET (FP) PO SCH (09:32)
[2018-03-29] MEDS: LIDOCAINE 5% TOPICAL PATCH TP SCH (09:34)
[2018-03-29] MEDS: MAG HYDROX/AL HYDROX/SIMETH 30 ML UNIT-DOSE CUP PO PRN (09:40)
--- NOTE | 2018-03-29 10:04 | PN ---
[facility] Progress Note Note: C/O ANXIETY,SLIGHT CHEST DISCOMFORT, MID CHEST ESPECIALLY WHEN TRYING TO GET UP FROM SITTING POSITION, RESTLESS NIGHT-"LAST NIGHT I GOT A LOT ON MY MIND". PT DENIES SOB AT REST EXCEPT ON EXERTION. PT IS SCHEDULED FOR DISCHARGE IN A.M. PT REPORTS HE GOES TO [facility] FOR PRIMARY CARE. EXAM: CARDIAC:S1 S2, RRR, NO MURMUR LUNGS; CTA/P ABDOMEN:SOFT,BS+. SOFT TO PALPATION, FATTY ABDOMEN ASSESSMENT:DYSPEPSIA GERD PLAN:PROTONIX 40 MG PO DAILY REPEAT EKG FOLLOW UP WITH PRIMARY CARE AT [place], [place] FOR MEDICAL MANAGEMENT.
[2018-03-29] MEDS: IBUPROFEN 400 MG TABLET (FP) PO PRN (10:55)
[2018-03-29] MEDS: PANTOPRAZOLE 40 MG TABLET (FP) PO SCH (10:55)
[2018-03-29] MEDS ORDERED: PT OWN MED DRAWER 7, Y5N ONE (11:37)
--- NOTE | 2018-03-29 12:48 | PN ---
Psychiatric Progress Note Vital Signs: Vital Signs Period Temp Pulse Resp BP Sys/Lundy Pulse Ox Last 24 Hr 98.4 F 69 18-20 163/86 Date of Session: 03/29/18 Chief Complaint:: Discharge Note HPI: Patient addressing Alcohol, Opioid, Cocaine and Cannabis Dependence comorbid with Nicotine Dependence and Substance-Induced Sleep Disorder ROS: Asthma, Sleep Apnea, HTN, HLD, DM, Lumbar herniated disc Current Medications: Active Medications Generic Name Dose Route Start Last Admin Trade Name Freq PRN Reason Stop Dose Admin Acetaminophen 650 mg 03/11/18 14:55 03/28/18 09:48 Tylenol - PO 650 mg Q4H PRN Administration FEVER Al Hydroxide/Mg Hydroxide 30 ml 03/11/18 14:55 03/29/18 09:40 Mylanta Oral Suspension - PO 30 ml Q6H PRN Administration DYSPEPSIA Albuterol Sulfate 2 puff 03/24/18 07:30 03/26/18 09:27 Ventolin Hfa Inhaler - IH 2 puff QID PRN Administration ASTHMA Albuterol/Ipratropium 1 amp 03/29/18 07:19 Duoneb - NEB Q6H PRN SHORTNESS OF BREATH Atorvastatin Calcium 10 mg 03/11/18 22:00 03/28/18 22:05 Lipitor - PO 10 mg HS CECILE Administration Benzocaine 1 applic 03/19/18 14:33 03/20/18 21:25 Americaine Ointment - CA 1 applic QID PRN Administration HEMORRHOIDS Colloidal Oatmeal 1 applic 03/11/18 15:32 03/27/18 08:29 Aveeno Soap - TP 1 bar DAILY PRN Administration HYGEINE Docusate Sodium 100 mg 03/19/18 22:00 03/29/18 06:46 Colace - PO Not Given TID CECILE Eucalyptus/Menthol/Phenol/Sorbitol 1 each 03/11/18 14:55 Cepastat Lozenge - MM Q4H PRN SORE THROAT Guaifenesin 10 ml 03/11/18 14:55 Robitussin Dm - PO Q6H PRN COUGH Hydrocortisone 1 applic 03/11/18 15:32 03/15/18 21:27 Hytone 1% Ointment - TP 1 applic Q6H PRN Administration eczema. Hydroxyzine Pamoate 25 mg 03/11/18 14:55 09/23/18 22:05 Vistaril - PO 25 mg Q4H PRN Administration AGITATION Ibuprofen 400 mg 03/11/18 14:55 03/29/18 10:55 Motrin - PO 400 mg Q6H PRN Administration Pain Level 4-6 Lidocaine 1 patch 03/22/18 14:15 03/29/18 09:34 Lidoderm Patch - TP 1 patch DAILY CECILE Administration Lisinopril 10 mg 03/16/18 10:00 03/29/18 09:32 Prinivil PO 10 mg DAILY CECILE Administration Loperamide HCl 4 mg 03/11/18 14:55 Imodium - PO Q6H PRN DIARRHEA Magnesium Citrate 300 ml 03/11/18 14:55 Citroma - PO Q48H PRN CONSTIPATION Magnesium Hydroxide 30 ml 03/11/18 14:55 03/19/18 08:26 Milk Of Magnesia - PO 30 ml DAILY PRN Administration CONSTIPATION Melatonin 5 mg 03/11/18 22:00 03/28/18 22:06 Melatonin PO 5 mg HS PRN Administration INSOMNIA Metformin HCl 500 mg 03/12/18 07:00 03/29/18 07:13 Glucophage Xr - PO 500 mg DAILY@0700 CECILE Administration Miscellaneous 1 each 03/22/18 22:00 03/28/18 22:07 Lidoderm Patch Removal MC 1 each DAILY@2200 CECILE Administration Pantoprazole Sodium 40 mg 03/29/18 10:15 03/29/18 10:55 Protonix - PO 40 mg DAILY CECILE Administration Multivit/Folic Acid/Iron 1 tab 03/12/18 10:00 03/29/18 09:32 Vitamins (Sjr) - PO 1 tab DAILY CECILE Administration Pseudoephedrine/Triprolidine 1 combo 03/11/18 14:55 Actifed - PO TID PRN NASAL CONGESTION Tamsulosin HCl 0.4 mg 03/12/18 08:30 03/29/18 09:30 Flomax - PO Not Given DAILY@0830 CECILE Thiamine HCl 100 mg 03/11/18 22:00 03/28/18 22:08 Vitamin B1 - PO 100 mg HS CECILE Administration Trazodone HCl 50 mg 03/12/18 22:00 03/28/18 22:05 Desyrel - PO 50 mg HS CECILE Administration Current Side Effect: No Lab tests ordered: Yes Lab tests reviewed: Yes Provider note:: Patient will complete this program on 03/30/18. He has met his treatment goals and will continue to address his issues in intermediate accountant residential treatment at [facility]. 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 He responded well to Trazadone 50 mg po HS. Script for 30 days supply of that medication will be electronically transmitted to [facility] at [address] [place] [address]. He is stable for discharge on 03/30/18 Total face to face time:: 35 Mental Status Exam - Mental Status Exam Alert and Oriented to: Time, Place, Person Cognitive Function: Fair Patient Appearance: Well Groomed Mood: Hopeful, Euthymic Affect: Appropriate Patient Behavior: Cooperative Speech Pattern: Clear Voice Loudness: Normal Thought Process: Intact, Goal Oriented Thought Disorder: Not Present Hallucinations: Denies Suicidal Ideation: Denies Homicidal Ideation: Denies Insight/Judgement: Fair Sleep: Fair Appetite: Good Muscle strength/Tone: Normal Gait/Station: Normal Psychiatric Treatment Plan - Problem List (1) Alcohol dependence Current Visit: Yes (2) Opioid dependence Current Visit: Yes (3) Cocaine dependence Current Visit: Yes Qualifiers: (4) BPH (benign prostatic hyperplasia) Current Visit: Yes Qualifiers: Lower urinary tract symptom presence: unspecified whether lower urinary tract symptoms present Qualified Code(s): N40.0 - Benign prostatic hyperplasia without lower urinary tract symptoms (5) Nicotine dependence Current Visit: No Qualifiers: Nicotine product type: cigarettes Substance use status: in withdrawal Qualified Code(s): F17.213 - Nicotine dependence, cigarettes, with withdrawal (6) Substance-induced sleep disorder Current Visit: Yes (7) GERD (gastroesophageal reflux disease) Current Visit: Yes (8) Asthma Current Visit: Yes Qualifiers: Asthma severity: unspecified severity Asthma persistence: unspecified Asthma complication type: unspecified Qualified Code(s): J45.909 - Unspecified asthma, uncomplicated (9) Diabetes mellitus type 2 in obese Current Visit: Yes (10) HTN (hypertension) Current Visit: Yes Qualifiers: Hypertension type: essential hypertension (11) Hypercholesteremia Current Visit: Yes (12) Lumbar herniated disc Current Visit: Yes (13) Morbid obesity Current Visit: Yes (14) Neuropathy Current Visit: Yes Initial treatment plan: Patient will be discharged tomorrow and referred to [facility] for intermediate accountant residential treatment
[2018-03-29] MEDS: ACETAMINOPHEN 325 MG TABLET (FP) PO PRN (15:20)
[2018-03-29] MEDS ORDERED: cloNIDine HCL 0.1 MG TABLET PO ONE (15:38)
--- NOTE | 2018-03-29 18:10 | EKG ---
Test Reason : Blood Pressure : / mmHG Vent. Rate : 067 BPM Atrial Rate : 067 BPM P-R Int : 160 ms QRS Dur : 092 ms QT Int : 428 ms P-R-T Axes : 052 059 078 degrees QTc Int : 452 ms NORMAL SINUS RHYTHM NORMAL ECG WHEN COMPARED WITH ECG OF 08-MAR-2018 17:05, PREMATURE SUPRAVENTRICULAR COMPLEXES ARE NO LONGER PRESENT Confirmed by JUNITO BERNAL MD ([id number]) on 03/29/2018 6:10:07 PM Referred By: Confirmed By:JUNITO BERNAL MD
[2018-03-29] MEDS ORDERED: LISINOPRIL 10 MG TABLET (FP) PO ONE (22:00)
[2018-03-29] MEDS: THIAMINE HCL 100 MG TABLET (FP) PO SCH (22:11)
[2018-03-29] MEDS: LIDOCAINE PATCH REMOVAL MC SCH (22:11)
[2018-03-29] MEDS: hydrOXYzine PAMOATE 25 MG CAPSULE (FP) PO PRN (22:11)
[2018-03-29] MEDS: ATORVASTATIN CA 10 MG TABLET (FP) PO SCH (22:11)
[2018-03-29] MEDS: MELATONIN 5 MG TABLETS PO PRN (22:11)
[2018-03-29] MEDS: traZODone HCL 50 MG TABLET (FP) PO SCH (22:12)
[2018-03-30] MEDS: DOCUSATE SODIUM 100 MG CAPSULE (FP) PO SCH (06:05)
[2018-03-30 07:05] VITALS: BP 161/105; PULSE 72; TEMP 97.3
[2018-03-30] MEDS ORDERED: cloNIDine HCL 0.1 MG TABLET PO ONE (07:21)
--- NOTE | 2018-03-30 07:23 | PN ---
S Progress Note Note: Patient's blood pressure is B/P 161/105. Patient is asymptomatic Vital Signs Temperature 97.3 F L 03/30/18 07:04 Pulse Rate 72 03/30/18 07:04 Respiratory Rate 20 03/30/18 07:04 Blood Pressure 161/105 H 03/30/18 07:04 O2 Sat by Pulse Oximetry (%) Action: Clonidine 0.1mg oral ordered
[2018-03-30] MEDS: TAMSULOSIN HCL 0.4 MG CAP.ER.24H (FP) PO SCH (08:36)
[2018-03-30] MEDS: PANTOPRAZOLE 40 MG TABLET (FP) PO SCH (09:35)
[2018-03-30] MEDS: LISINOPRIL 10 MG TABLET (FP) PO SCH (09:35)
[2018-03-30] MEDS: LIDOCAINE 5% TOPICAL PATCH TP SCH (09:36)
[2018-03-30] MEDS: PRENATAL VITAMINS W/ FOLIC ACID TABLET (FP) PO SCH (09:36)
== END 2018-03-30 09:50 | disposition home or self-care (01) | DRG 895 ==
LOC: YASAS 12:41 → Y3W 12:42
PROVIDERS: ADMIT Psychiatry & Neurology Psychiatry; ATTEND Psychiatry & Neurology Psychiatry
PROC: HZ42ZZZ Group Counseling for Substance Abuse Treatment, Cognitive-Behavioral (ICD-10-PCS; principal; 2018-03-11)
DX: F11.20 Opioid dependence, uncomplicated (principal); F14.20 Cocaine dependence, uncomplicated; F17.213 Nicotine dependence, cigarettes, with withdrawal; F19.282 Other psychoactive substance dependence with psychoactive substance-induced sleep disorder; E80.0 Hereditary erythropoietic porphyria; Z68.44 Body mass index [BMI] 60.0-69.9, adult; F10.20 Alcohol dependence, uncomplicated; I10 Essential (primary) hypertension; J45.909 Unspecified asthma, uncomplicated; K21.9 Gastro-esophageal reflux disease without esophagitis; E11.9 Type 2 diabetes mellitus without complications; Z79.84 Long term (current) use of oral hypoglycemic drugs; M51.26 Other intervertebral disc displacement, lumbar region; E66.01 Morbid (severe) obesity due to excess calories; R26.89 Other abnormalities of gait and mobility; Z99.89 Dependence on other enabling machines and devices
CPT/HCPCS: 82962; 90732; 93005; 93010; 94640; G0009; J0735; J7620